=== PATIENT | female | born 1975 | race Caucasian/White ===

== ENCOUNTER 2019-11-29 17:44 | Inpatient (IN) | payer MEDICAID ==
[~2019-11-29] VITALS: Ht 157.5 cm; Wt 102.9 kg
--- NOTE | 2019-11-29 18:04 | NUR ---
PT WITH C/O CP BEGINNING AT 1600 TODAY, PT WITH HX OF DE SHE TOOK ONE OF HER NITROS AND THE PAIN WENT FROM 7/10 TO 310. PT DENIES SOB. PT TO CARD MONITOR, CONT PULSE OX, BP.
--- NOTE | 2019-11-29 18:27 | NUR ---
PT STATES DOESNT WANT TO TAKE ORDERED ASA BECAUSE SHE IS ON COUMADIN, ERMD MADE AWARE
[2019-11-29] MEDS ORDERED: SODIUM CHLORIDE FLUSH 10ML SYR IVF ONE (18:30)
[2019-11-29] MEDS ORDERED: ASPIRIN 81 MG TABLET CHEW PO ONE (18:30)
--- NOTE | 2019-11-29 18:43 | NUR ---
PT TO IMAGING
[2019-11-29 18:53] LABS: ALBUMIN 3.3 g/dL (3.4-5.0); ANION GAP 8 mmol/L (5-15); CALCIUM 8.5 mg/dL (8.5-10.1); CHLORIDE 109 mmol/L (98-107); CREATININE 0.94 mg/dL (0.55-1.02)
[2019-11-29 18:56] LABS: INTERNATIONAL NORMALIZED RATIO 1.61 (0.93-1.1); PROTHROMBIN TIME 17.1 Seconds (9.6-11.5); TROPONIN I < 0.015 ng/mL (0.000-0.045)
[2019-11-29] MEDS ORDERED: PLEASE ENTER ALLERGIES MC SCH (19:00)
[2019-11-29 19:01] LABS: BASOPHILS # (AUTO) 0.04 x10^3/uL (0-0.1); BASOPHILS % (AUTO) 1 % (0-1); EOSINOPHILS # (AUTO) 0.14 x10^3/uL (0-0.4); EOSINOPHILS % (AUTO) 2 % (1-7); LYMPHOCYTES % (AUTO) 35 % (22-44); MD NO; MEAN CORPUSCULAR HEMOGLOBIN 29.3 pg (27.0-34.8); MEAN CORPUSCULAR HGB CONC 32.6 g/dL (32.4-35.8); MEAN PLATELET VOLUME 8.7 fL (7.4-10.4); MONOCYTES % (AUTO) 10 % (2-9); NEUTROPHILS % (AUTO) 52 % (42-75); PLATELET COUNT 287 x10^3/uL (130-400); RED BLOOD COUNT 4.05 x10^6/uL (3.82-5.3); RED CELL DISTRIBUTION WIDTH 15.7 % (9.6-15.2)
[2019-11-29] MEDS ORDERED: NITROGLYCERIN SINGLE TAB 0.4 MG SL ONE ×2 (19:30→21:39)
[2019-11-29] MEDS: NITROGLYCERIN SINGLE TAB 0.4 MG SL PRN ×2 (19:33→21:40)
--- NOTE | 2019-11-29 19:49 | NUR ---
Medication admin per mar for CP. Decreased pain from a 4/10 to a 2/10 which is tolerable for patient.
[2019-11-29] MEDS ORDERED: SODIUM CHLORIDE FLUSH 10ML SYR IVF PRN (20:30)
[2019-11-29] MEDS ORDERED: POLYETHYLENE GLYCOL 17 GM PACKET PO PRN (21:00)
[2019-11-29] MEDS ORDERED: NITROGLYCERIN 0.4 MG BOTTLE (25 TABS) SL PRN (21:00)
[2019-11-29] MEDS ORDERED: ONDANSETRON ODT 4 MG PO PRN (21:00)
[2019-11-29] MEDS ORDERED: morphine SULFATE 10 MG/ML, 1ML IVPush PRN (21:00)
[2019-11-29] MEDS ORDERED: BISACODYL 10 MG SUPP PR PRN (21:00)
[2019-11-29] MEDS ORDERED: SERT100T32 PO (21:11)
[2019-11-29] MEDS ORDERED: CHLO25TA PO (21:11)
[2019-11-29] MEDS ORDERED: METH500T7 PO (21:11)
[2019-11-29] MEDS ORDERED: WARF10TA43 PO (21:11)
[2019-11-29] MEDS ORDERED: GABA300C10 PO (21:11)
[2019-11-29] MEDS ORDERED: TOPI100T8 PO (21:11)
[2019-11-29] MEDS ORDERED: PROP40TA PO (21:11)
[2019-11-29] MEDS ORDERED: OLAN20TA14 PO (21:11)
[2019-11-29] MEDS ORDERED: TRAZ50TA66 PO (21:11)
[2019-11-29] MEDS ORDERED: LISI-170 PO (21:11)
[2019-11-29] MEDS ORDERED: ONDA4TAB13 SL (21:11)
[2019-11-29] MEDS ORDERED: LOVA40TA2 PO (21:11)
--- NOTE | 2019-11-29 21:41 | NUR ---
Patient c/o CP 02/22. Administered meds per jan.
--- NOTE | 2019-11-29 21:55 | NUR ---
Pt alert and awake on [facility]. Report given to DEVYN Alvarado
--- NOTE | 2019-11-29 22:30 | NUR ---
At time of admit, pt alert and interactive. NAD.
[2019-11-29] MEDS: SODIUM CHLORIDE FLUSH 10ML SYR IVF SCH (23:06)
[2019-11-30] MEDS: ENOXAPARIN 100 MG/ML SQ SCH ×2 (00:14→11:30)
[2019-11-30 00:55] LABS: TROPONIN I < 0.015 ng/mL (0.000-0.045)
[2019-11-30] MEDS ORDERED: TRAZODONE 100MG TABLET PO ONE (01:30)
[2019-11-30 02:40] VITALS: BP 111/77
[2019-11-30] MEDS ORDERED: ASPIRIN 325 MG TABLET EC PO SCH (06:00)
[2019-11-30 07:17] LABS: TROPONIN I < 0.015 ng/mL (0.000-0.045)
[2019-11-30] MEDS: SODIUM CHLORIDE FLUSH 10ML SYR IVF SCH (09:00)
[2019-11-30] MEDS ORDERED: LORazepam 2 MG/ML, 1ML IVPush ONE (09:00)
[2019-11-30] MEDS ORDERED: SENNA/DOCUSATE TABLET PO SCH (09:00)
[2019-11-30] MEDS ORDERED: LORazepam 2 MG/ML, 1ML ONE (09:07)
[2019-11-30 12:25] VITALS: BP 96/65
[2019-11-30] MEDS ORDERED: REGADENOSON 0.4 MG/5 ML SYRINGE ONE (12:29)
[2019-11-30] MEDS ORDERED: ENOX100S4 SQ (14:45)
[2019-11-30] MEDS ORDERED: ASPI-515 PO (14:47)
[2019-11-30 15:00] VITALS: BP 112/79
[2019-11-30] MEDS ORDERED: TOPIRAMATE 100 MG TABLET PO SCH (21:00)
[2019-11-30] MEDS ORDERED: GABAPENTIN 300 MG CAPSULE PO SCH (21:00)
[2019-11-30] MEDS ORDERED: METHOCARBAMOL 500 MG TABLET PO SCH (21:00)
[2019-11-30] MEDS ORDERED: LOVASTATIN 40 MG TABLET PO SCH (21:00)
[2019-12-01] MEDS ORDERED: SERTRALINE 100MG TABLET PO SCH (09:00)
[2019-12-01] MEDS ORDERED: ONDANSETRON ODT 4 MG SL SCH (09:00)
[2019-12-01] MEDS ORDERED: CHLORTHALIDONE 25 MG TABLET PO SCH (09:00)
[2019-12-01] MEDS ORDERED: LISINOPRIL 20 MG TABLET PO SCH (09:00)
[2019-12-01] MEDS ORDERED: PROPRANOLOL 40 MG TABLET PO SCH (09:00)
[2019-12-01] MEDS ORDERED: TRAZODONE 50MG TABLET PO SCH (09:00)
[2019-12-01] MEDS ORDERED: OLANZAPINE 10 MG TABLET PO SCH (09:00)
== END 2019-11-30 16:35 | disposition home or self-care (01) | DRG 313 ==
LOC: ED 21:11 → EDIP 21:34 → 5SO 22:38 → DCLOUNGE 11-30 16:15
PROVIDERS: ADMIT Family Medicine; ATTEND Internal Medicine
DX: R07.9 Chest pain, unspecified (principal); E78.5 Hyperlipidemia, unspecified; I10 Essential (primary) hypertension; I25.119 Atherosclerotic heart disease of native coronary artery with unspecified angina pectoris; I25.2 Old myocardial infarction; Z86.718 Personal history of other venous thrombosis and embolism; Z86.73 Personal history of transient ischemic attack (TIA), and cerebral infarction without residual deficits; Z95.5 Presence of coronary angioplasty implant and graft; Z90.49 Acquired absence of other specified parts of digestive tract
CPT/HCPCS: 36415; 71046; 78452; 80048; 82040; 83880; 84439; 84443; 84484; 85025; 85610; 85730; 93005; 93017; 99285; G0378; J1650; J2785; A9502; J2060

== ENCOUNTER 2020-02-04 15:05 | Emergency (ER) | payer MEDICAID ==
[~2020-02-04] VITALS: Ht 157.5 cm; Wt 109.5 kg
[~2020-02-04 15:05] MED LIST: ASPI-515 PO; CHLO25TA PO; ENOX100S4 SQ; GABA300C10 PO; LISI-170 PO; LOVA40TA2 PO; METH500T7 PO; OLAN20TA14 PO; ONDA4TAB13 SL; PROP40TA PO; SERT100T32 PO; TOPI100T8 PO; TRAZ50TA66 PO; WARF10TA43 PO
[2020-02-04 15:12] VITALS: BP 94/60
== END 2020-02-04 15:47 | disposition home or self-care (01) ==
LOC: ED 15:35
DX: B34.9 Viral infection, unspecified (principal); J45.31 Mild persistent asthma with (acute) exacerbation
CPT/HCPCS: 99283

== ENCOUNTER 2020-03-24 08:05 | Emergency (ER) | payer MEDICAID ==
[~2020-03-24] VITALS: Ht 157.5 cm; Wt 110.3 kg
[2020-03-24 08:08] VITALS: BP 126/87
[2020-03-24] MEDS ORDERED: DEXAMETHASONE 4 MG/ML, 1ML IM ONE (08:30)
[2020-03-24] MEDS ORDERED: DEXAMETHASONE 4 MG/ML, 1ML ONE (08:42)
== END 2020-03-24 09:21 | disposition home or self-care (01) ==
LOC: ED 09:11
DX: L24.9 Irritant contact dermatitis, unspecified cause (principal); L23.9 Allergic contact dermatitis, unspecified cause; J45.909 Unspecified asthma, uncomplicated
CPT/HCPCS: 96372; 99283; J1100; Q0177

== ENCOUNTER 2020-04-18 20:31 | Observation (INO) | payer MEDICAID ==
[~2020-04-18] VITALS: Ht 157.5 cm; Wt 116.8 kg
--- NOTE | 2020-04-18 20:58 | NUR ---
PT BIB [facility], PT WITH SUDDEN ONSET SOB WITH CHEST PRESSURE, WOKE PT UP FROM SLEEP. PT WITH HX LA X2. PT ATTEMPTED TO ADMIN ONE BREATHING TX TO HERSELF WITH NO RELIEF, PT ALSO TOOK ONE NITRO WHICH WORSENED PTS SOB. PT DENIES FEVER/COUGH. PT STATES SHE IS MORE SOB THEN HAVING ACTIVE CP AT THIS TIME. PT IS UNSURE IF IT IS HER COPD ACTING UP OR NOT. PT TO BP, CONT PULSE OX, CARD MONITOR. VSS AT THIS TIME, AWAITING LARS JARA
--- NOTE | 2020-04-18 21:11 | NUR ---
PT REPORT FROM DEVYN HAAS. PT CARE TO BE ASSUMED.
--- NOTE | 2020-04-18 21:41 | NUR ---
THIS TECH DID EKG. PT STATES SHE IS HAVING SURGERY ON WEDNESDAY TO REMOVE HARDWARE FROM ANKLE AND "CAN'T STAY IF NEEDS TO BE ADMITTED". ADVISED PT TO SPEAK TO AND THAT IT IS NOT ADVISABLE TO LEAVE AMA.
[2020-04-18] MEDS ORDERED: CARB400T4 PO (21:42)
[2020-04-18] MEDS ORDERED: NITR0.4T28 SL (21:42)
[2020-04-18] MEDS ORDERED: BUSP30TA PO (21:42)
[2020-04-18] MEDS ORDERED: POTA20TA14 PO (21:42)
[2020-04-18] MEDS ORDERED: ERGO500018 PO (21:42)
[2020-04-18] MEDS ORDERED: PROP20TA PO (21:42)
[2020-04-18] MEDS ORDERED: BUDE10.26 INH (21:43)
[2020-04-18] MEDS ORDERED: ALBU2.5V INH (21:43)
--- NOTE | 2020-04-18 21:50 | NUR ---
CXR DONE. PT RESTING QUIETLY ON GURNEY. MONITORING CONTINUING.
--- NOTE | 2020-04-18 22:06 | NUR ---
PT REPORT TO DEVYN PENALOZA. PT CARE TRANSFERRED.
--- NOTE | 2020-04-18 22:07 | NUR ---
RECEIVED REPORT FROM SANDY SHEPARD. CARE ASSUMED AT THIS TIME. LAB CALLED REGARDING ORDERS FOR LAB DRAW, TO COME COLLECT SPECIMENS. VSS. SR ON MONITOR. PT REPORTS "EVERY TIME I TAKE A DEEP BREATH IT HURTS BUT I DON'T WANT TO BE ADMITTED, I HAVE A SURGERY COMING UP TO GET METAL OUT OF MY ANKLE, IT CAUSES ME PAIN SO I CAN'T BE POSTPONED." REPORTS "SOB ABOUT THE SAME AND THE CP TOO, STILL 06/24." DISCUSSED PAIN AND PT SYMPTOMS WITH DR. SALCEDO, AWARE, NO NEW ORDERS RECEIVED. CALL LIGHT IN REACH. FALL PRECAUTIONS IN PLACE.
--- NOTE | 2020-04-18 22:13 | NUR ---
LAB AT BEDSIDE
--- NOTE | 2020-04-18 22:35 | NUR ---
REPORT AND TRANSFER OF CARE TO MINO SHEPARD AT THIS TIME.
--- NOTE | 2020-04-18 22:35 | NUR ---
BEDSIDE REPORT FROM TREMAINE SHEPARD, PT CARE TRANSFERRED AT THIS TIME. RESTING IN [facility], CALL LIGHT ON LAP, [facility].
[2020-04-18 22:37] LABS: ALANINE AMINOTRANSFERASE 19 U/L (12-78); ANION GAP 8 mmol/L (5-15); CALCIUM 8.4 mg/dL (8.5-10.1); CHLORIDE 110 mmol/L (98-107); CREATININE 0.87 mg/dL (0.55-1.02)
[2020-04-18 22:38] LABS: BASOPHILS # (AUTO) 0.05 x10^3/uL (0-0.1); BASOPHILS % (AUTO) 1 % (0-1); EOSINOPHILS % (AUTO) 4 % (1-7); LYMPHOCYTES # (AUTO) 2.36 x10^3/uL (1-3.4); LYMPHOCYTES % (AUTO) 31 % (22-44); MD NO; MEAN CORPUSCULAR HEMOGLOBIN 28.3 pg (27.0-34.8); MEAN CORPUSCULAR HGB CONC 32.1 g/dL (32.4-35.8); MEAN CORPUSCULAR VOLUME 88.4 fL (80-100); MEAN PLATELET VOLUME 8.9 fL (7.4-10.4); MONOCYTES # (AUTO) 0.71 x10^3/uL (0.2-0.8); MONOCYTES % (AUTO) 9 % (2-9); NEUTROPHILS # (AUTO) 4.15 x10^3/uL (1.8-6.8); NEUTROPHILS % (AUTO) 55 % (42-75); PLATELET COUNT 304 x10^3/uL (130-400); RED BLOOD COUNT 4.03 x10^6/uL (3.82-5.3); RED CELL DISTRIBUTION WIDTH 15.6 % (9.6-15.2)
[2020-04-18 22:41] LABS: ALKALINE PHOSPHATASE 84 U/L (45-117); BILIRUBIN,TOTAL 0.2 mg/dL (0.2-1.0); TOTAL PROTEIN 7.2 g/dL (6.4-8.2); TROPONIN I < 0.015 ng/mL (0.000-0.045)
[2020-04-18] MEDS ORDERED: ACETAMINOPHEN 325 MG TABLET ONE ×2 (23:24→23:28)
[2020-04-18 23:27] LABS: INTERNATIONAL NORMALIZED RATIO 1.06 (0.93-1.1); PROTHROMBIN TIME 11.2 Seconds (9.6-11.5)
[2020-04-18] MEDS ORDERED: ONDANSETRON 2MG/ML, 2ML IVPush PRN (23:30)
[2020-04-18] MEDS ORDERED: MORPHINE SULFATE 4 MG/ML, 1ML IVPush PRN (23:30)
--- NOTE | 2020-04-18 23:32 | NUR ---
PT MEDICATED PER JAN, RESTING IN GURNEY, NAD, RESP WNL, P/W/D, CALL LIGHT ON LAP, DENIES ADDITIONAL NEEDS AT THIS TIME. WCTM.
[2020-04-19] MEDS ORDERED: BISACODYL 10 MG SUPP PR PRN
[2020-04-19] MEDS ORDERED: ACETAMINOPHEN 325 MG TABLET PO ONE
[2020-04-19] MEDS ORDERED: ONDANSETRON ODT 4 MG PO PRN
[2020-04-19] MEDS ORDERED: POLYETHYLENE GLYCOL 17 GM PACKET PO PRN
[2020-04-19] MEDS ORDERED: ACETAMINOPHEN 325 MG TABLET PO PRN
[2020-04-19] MEDS ORDERED: METHOCARBAMOL 500 MG TABLET PO SCH
[2020-04-19] MEDS ORDERED: morphine SULFATE 10 MG/ML, 1ML IVPush PRN
--- NOTE | 2020-04-19 00:11 | NUR ---
REPORT CALLED TO RYLAND SHEPARD, PT RESTING IN [facility], [facility], RESP WNL, P/W/D, VSS, CALL LIGHT ON LAP, WCTM. WAITING FOR BED TRANSFER
[2020-04-19] MEDS ORDERED: ALBUTEROL SULFATE 2.5 MG/3 ML NPPB SCH (00:30)
[2020-04-19] MEDS ORDERED: BUDESONIDE 0.5 MG/2 ML INHA NPPB SCH (00:30)
[2020-04-19 00:31] VITALS: BP 134/80
[2020-04-19] MEDS ORDERED: TRAZ-175 PO (01:33)
[2020-04-19] MEDS ORDERED: METH500T7 PO (01:57)
[2020-04-19 02:37] VITALS: BP 117/81
[2020-04-19] MEDS: TRAZODONE 100MG TABLET PO SCH ×2 (02:59→21:19)
[2020-04-19] MEDS ORDERED: NITROGLYCERIN 0.4 MG/SPRAY SL PRN (03:00)
[2020-04-19] MEDS ORDERED: NITROGLYCERIN 0.4 MG BOTTLE (25 TABS) SL PRN (03:00)
[2020-04-19] MEDS: NITROGLYCERIN 0.4 MG BOTTLE (25 TABS) SL PRN ×2 (03:13→08:48)
[2020-04-19] MEDS: HEPARIN 5,000 UNITS/ML, 1ML SQ SCH ×3 (03:13→17:09)
[2020-04-19] MEDS: GABAPENTIN 300 MG CAPSULE PO SCH ×4 (03:14→21:19)
[2020-04-19] MEDS: BUSPIRONE 10 MG TABLET PO SCH ×3 (03:14→21:19)
[2020-04-19] MEDS: PROPRANOLOL 20 MG TABLET PO SCH ×4 (03:14→21:19)
[2020-04-19] MEDS: CARBAMAZEPINE XR 200 MG TABLET PO SCH ×3 (03:14→21:19)
[2020-04-19] MEDS: SODIUM CHLORIDE FLUSH 10ML SYR IVF SCH ×3 (03:15→21:20)
[2020-04-19 03:35] VITALS: BP 109/74
[2020-04-19 06:11] LABS: TROPONIN I < 0.015 ng/mL (0.000-0.045)
[2020-04-19] MEDS: ASPIRIN 81 MG TABLET EC PO SCH (06:41)
[2020-04-19] MEDS: METHOCARBAMOL 500 MG TABLET PO SCH ×4 (06:41→21:19)
[2020-04-19] MEDS: ALBUTEROL SULFATE 2.5 MG/3 ML NPPB SCH ×4 (07:03→19:53)
[2020-04-19 08:21] VITALS: BP 114/76
[2020-04-19] MEDS: POTASSIUM CHLORIDE 20 MEQ TAB.ER.PRT PO SCH (08:50)
[2020-04-19] MEDS: SERTRALINE 100MG TABLET PO SCH (08:51)
[2020-04-19] MEDS: SENNA/DOCUSATE TABLET PO SCH (08:52)
[2020-04-19] MEDS: OLANZAPINE 10 MG TABLET PO SCH (08:52)
[2020-04-19] MEDS ORDERED: TRAZODONE 100MG TABLET PO SCH (09:00)
[2020-04-19 09:57] LABS: T4 (THYROXINE) 6.3 mcg/dL (4.8-13.9)
[2020-04-19] MEDS: BUDESONIDE 0.5 MG/2 ML INHA NPPB SCH ×2 (10:00→19:53)
[2020-04-19 11:59] LABS: TROPONIN I < 0.015 ng/mL (0.000-0.045)
[2020-04-19 14:03] VITALS: BP 101/69
[2020-04-19 20:41] LABS: MICROSCOPIC INDICATED
[2020-04-19 20:50] LABS: AMPHETAMINE SCREEN, URINE Negative (Negative); BARBITURATE SCREEN, URINE Negative (Negative); BENZODIAZEPINE SCREEN, URINE Negative (Negative); CANNABINOID SCREEN, URINE Negative (Negative); COCAINE SCREEN, URINE Negative (Negative); METHADONE SCREEN, URINE Negative (Negative); OPIATE SCREEN, URINE Negative (Negative)
[2020-04-19 21:14] VITALS: BP 115/78
[2020-04-19] MEDS: ENOXAPARIN 120MG/0.8ML SQ SCH (21:19)
[2020-04-20 00:58] VITALS: BP 106/72
[2020-04-20] MEDS: METHOCARBAMOL 500 MG TABLET PO SCH ×3 (06:20→16:41)
[2020-04-20] MEDS: ASPIRIN 81 MG TABLET EC PO SCH (06:20)
[2020-04-20] MEDS: ALBUTEROL SULFATE 2.5 MG/3 ML NPPB SCH ×3 (07:00→14:34)
[2020-04-20 08:07] VITALS: BP 134/86
[2020-04-20 08:29] VITALS: BP 121/82
[2020-04-20] MEDS: BUDESONIDE 0.5 MG/2 ML INHA NPPB SCH (08:58)
[2020-04-20] MEDS: SODIUM CHLORIDE FLUSH 10ML SYR IVF SCH (09:00)
[2020-04-20] MEDS: SENNA/DOCUSATE TABLET PO SCH (09:00)
[2020-04-20] MEDS: SERTRALINE 100MG TABLET PO SCH (09:49)
[2020-04-20] MEDS: BUTALB/APAP/CAFFEINE 50MG/325MG/40MG PO PRN ×2 (09:49→16:44)
[2020-04-20] MEDS: PROPRANOLOL 20 MG TABLET PO SCH ×2 (09:50→16:41)
[2020-04-20] MEDS: POTASSIUM CHLORIDE 20 MEQ TAB.ER.PRT PO SCH (09:50)
[2020-04-20] MEDS: OLANZAPINE 10 MG TABLET PO SCH (09:50)
[2020-04-20] MEDS: CARBAMAZEPINE XR 200 MG TABLET PO SCH (09:50)
[2020-04-20] MEDS: BUSPIRONE 10 MG TABLET PO SCH (09:51)
[2020-04-20] MEDS: GABAPENTIN 300 MG CAPSULE PO SCH ×2 (09:51→16:41)
[2020-04-20] MEDS: ENOXAPARIN 120MG/0.8ML SQ SCH (09:52)
[2020-04-20 13:32] VITALS: BP 108/72
[2020-04-20] MEDS ORDERED: ENOX120S4 SQ (15:03)
[2020-04-20] MEDS ORDERED: ASPI81TA45 PO (15:03)
[2020-04-20] MEDS ORDERED: ATOR-2 PO (15:03)
[2020-04-20 16:40] VITALS: BP 120/79
[2020-04-20] MEDS ORDERED: ATORVASTATIN 80 MG TABLET PO SCH ×2 (21:00)
== END 2020-04-20 17:50 | disposition home or self-care (01) ==
LOC: ED 22:33 → EDIP 23:46 → INTOOBSV 23:46 → 5SO 04-19 00:25
PROVIDERS: ADMIT Hospitalist; ATTEND Internal Medicine
DX: R07.89 Other chest pain (principal); I25.2 Old myocardial infarction; I25.110 Atherosclerotic heart disease of native coronary artery with unstable angina pectoris; I82.90 Acute embolism and thrombosis of unspecified vein; C34.90 Malignant neoplasm of unspecified part of unspecified bronchus or lung; I10 Essential (primary) hypertension; E78.5 Hyperlipidemia, unspecified; F15.11 Other stimulant abuse, in remission; F32.9 Major depressive disorder, single episode, unspecified; J44.9 Chronic obstructive pulmonary disease, unspecified; E66.01 Morbid (severe) obesity due to excess calories; G89.29 Other chronic pain; F25.9 Schizoaffective disorder, unspecified; D68.59 Other primary thrombophilia; R45.851 Suicidal ideations; Z79.899 Other long term (current) drug therapy; Z87.891 Personal history of nicotine dependence; Z79.01 Long term (current) use of anticoagulants; Z86.711 Personal history of pulmonary embolism; Z95.5 Presence of coronary angioplasty implant and graft; Z86.73 Personal history of transient ischemic attack (TIA), and cerebral infarction without residual deficits
CPT/HCPCS: 36415; 71045; 71250; 76770; 80053; 80307; 81001; 84436; 84481; 84484; 85025; 85379; 85610; 93005; 93306; 94640; 96372; 99285; G0378; J1644; J1650; J7613; J7626

== ENCOUNTER 2020-05-17 15:37 | Emergency (ER) | payer MEDICAID ==
[~2020-05-17] VITALS: Ht 157.5 cm; Wt 117.0 kg
[~2020-05-17 15:37] MED LIST changes: +ALBU2.5V INH; +ASPI81TA45 PO; +ATOR-2 PO; +BUDE10.26 INH; +BUSP30TA PO; +CARB400T4 PO; +ENOX120S4 SQ; +ERGO500018 PO; +NITR0.4T28 SL; +POTA20TA14 PO; +PROP20TA PO; +TRAZ-175 PO
--- NOTE | 2020-05-17 15:37 | NUR ---
Pt BIB [facility] from [facility]. Pt c/p middle abd pain with nausea since last night. Pt also reports blacy tarry stool as well. Pt positioned for comfort in bed with warm blanket. Continuous oxygen and BP monitors applied, all safety measures observed.
[2020-05-17] MEDS ORDERED: ONDANSETRON 2MG/ML, 2ML ONE (15:50)
[2020-05-17] MEDS ORDERED: MORPHINE SULFATE 4 MG/ML, 1ML ONE ×2 (15:50→16:15)
[2020-05-17] MEDS ORDERED: ONDANSETRON 2MG/ML, 2ML IVPush ONE (16:00)
[2020-05-17] MEDS ORDERED: SODIUM CHLORIDE FLUSH 10ML SYR IVF ONE (16:00)
[2020-05-17] MEDS: MORPHINE SULFATE 4 MG/ML, 1ML IVPush PRN ×2 (16:01→16:18)
--- NOTE | 2020-05-17 16:02 | NUR ---
Pt medicated per MAR for pain. Pt encouraged to provide urine sample as soon as able.
[2020-05-17] MEDS ORDERED: WARF10TA43 PO (16:13)
[2020-05-17 16:16] LABS: BASOPHILS # (AUTO) 0.04 x10^3/uL (0-0.1); BASOPHILS % (AUTO) 1 % (0-1); EOSINOPHILS % (AUTO) 3 % (1-7); INTERNATIONAL NORMALIZED RATIO 1.48 (0.93-1.1); LYMPHOCYTES # (AUTO) 1.94 x10^3/uL (1-3.4); LYMPHOCYTES % (AUTO) 26 % (22-44); MD NO; MEAN CORPUSCULAR HEMOGLOBIN 28.2 pg (27.0-34.8); MEAN CORPUSCULAR HGB CONC 32.2 g/dL (32.4-35.8); MEAN CORPUSCULAR VOLUME 87.7 fL (80-100); MEAN PLATELET VOLUME 8.5 fL (7.4-10.4); MONOCYTES # (AUTO) 0.48 x10^3/uL (0.2-0.8); MONOCYTES % (AUTO) 7 % (2-9); NEUTROPHILS % (AUTO) 64 % (42-75); PLATELET COUNT 383 x10^3/uL (130-400); PROTHROMBIN TIME 15.8 Seconds (9.6-11.5); RED BLOOD COUNT 3.97 x10^6/uL (3.82-5.3); RED CELL DISTRIBUTION WIDTH 14.9 % (9.6-15.2)
--- NOTE | 2020-05-17 16:18 | NUR ---
Pt states pain unchanged after first dose morphine 08/24. Pt medicated with second dose per JAN. Verbal reassurance provided.
--- NOTE | 2020-05-17 16:18 | NUR ---
Unable to obtain new set VS due to pt movement.
[2020-05-17 16:19] LABS: ALANINE AMINOTRANSFERASE 19 U/L (12-78); ANION GAP 4 mmol/L (5-15); CALCIUM 8.3 mg/dL (8.5-10.1); CHLORIDE 109 mmol/L (98-107); CREATININE 0.91 mg/dL (0.55-1.02)
[2020-05-17 16:24] LABS: ALKALINE PHOSPHATASE 113 U/L (45-117); BILIRUBIN,TOTAL 0.1 mg/dL (0.2-1.0); TOTAL PROTEIN 7.5 g/dL (6.4-8.2)
--- NOTE | 2020-05-17 16:40 | NUR ---
Pt to CT via [facility].
[2020-05-17] MEDS ORDERED: HYDROmorphone 1 MG/ML, 1ML INJ ONE (17:06)
--- NOTE | 2020-05-17 17:11 | NUR ---
Pt states pain unchanged after second dose Morphine. Fernando WATERS made aware, orders for dilaudid recieved. Pt medicated per order and positioned for comfort in bed, denies other needs.
[2020-05-17] MEDS ORDERED: HYDROmorphone 2 MG/ML, 1ML IVPush PRN (17:30)
--- NOTE | 2020-05-17 17:44 | NUR ---
Pt ambulatory to bathroom to attempt to provide urine sample. Pt states pain improved after medications given, now 03/24.
[2020-05-17] MEDS ORDERED: MAALOX/HYOSCYAMINE/LIDOCAINE 45 ML BTL ONE (17:50)
--- NOTE | 2020-05-17 17:53 | NUR ---
Pt back to bed from bathroom. Pt medicated per MAR, denies other needs.
[2020-05-17] MEDS ORDERED: MAALOX/HYOSCYAMINE/LIDOCAINE 45 ML BTL PO ONE (18:00)
[2020-05-17 18:22] LABS: MICROSCOPIC NOT IND
--- NOTE | 2020-05-17 18:40 | NUR ---
TASK RN. PT DISCHARGED PER DR. QUESADA. ASSISTING PRIMARY RN WITH DISCHARGE ONLY. PROVIDED DISCHARGE INSTRUCTIONS, VERBALIZED UNDERSTANDING, HANDOUTS AND RX IN HAND. AMBULATORY TO CHECKOUT DESK WITH OWN WALKER AND ALL BELONINGS. REPORTS PAIN IMPROVED TO 3-4/10. VSS AT DISCHARGE. A&OX4. DENIES DRIVING HOME "I CAN'T DRIVE BECAUSE MY EPILEPSY, MY RIDE IS ON THEIR WAY."
[2020-05-17 18:43] VITALS: BP 113/72
== END 2020-05-17 18:47 | disposition home or self-care (01) ==
LOC: ED 18:07
DX: A08.4 Viral intestinal infection, unspecified (principal); R10.33 Periumbilical pain; J44.9 Chronic obstructive pulmonary disease, unspecified; I25.2 Old myocardial infarction; R11.0 Nausea; R63.0 Anorexia; Z79.899 Other long term (current) drug therapy; Z88.9 Allergy status to unspecified drugs, medicaments and biological substances
CPT/HCPCS: 36415; 74176; 80053; 81003; 83690; 84703; 85025; 85610; 86850; 86900; 96374; 96375; 99284; J1170; J2270; J2405

== ENCOUNTER 2020-06-08 21:27 | Emergency (ER) | payer MEDICAID ==
[~2020-06-08] VITALS: Ht 157.5 cm; Wt 120.2 kg
[2020-06-08 21:40] VITALS: BP 134/80
[2020-06-08] MEDS ORDERED: KETOROLAC 30 MG/1 ML ONE (23:23)
[2020-06-08] MEDS ORDERED: KETOROLAC 30 MG/1 ML IM ONE (23:30)
--- NOTE | 2020-06-08 23:39 | NUR ---
TASK RN: PT MEDICATED PER JAN, PROVIDED WITH TAXI VOUCHER AND EDUCATED ON DC Patient/Caregiver given discharge instructions and they have confirmed that they understand the instructions. Patient ambulatory with steady gait.
== END 2020-06-08 23:40 | disposition home or self-care (01) ==
LOC: ED 21:57
DX: L03.114 Cellulitis of left upper limb (principal); L03.113 Cellulitis of right upper limb; M79.602 Pain in left arm; R21 Rash and other nonspecific skin eruption; J44.9 Chronic obstructive pulmonary disease, unspecified; I25.2 Old myocardial infarction
CPT/HCPCS: 96372; 99283; J1885

== ENCOUNTER 2020-07-05 15:56 | Emergency (ER) | payer MEDICAID ==
[~2020-07-05] VITALS: Ht 157.5 cm; Wt 118.3 kg
[2020-07-05 15:59] VITALS: BP 143/89
== END 2020-07-05 17:39 | disposition home or self-care (01) ==
LOC: ED 16:00
DX: L73.8 Other specified follicular disorders (principal); B86 Scabies; J44.9 Chronic obstructive pulmonary disease, unspecified; I25.2 Old myocardial infarction
CPT/HCPCS: 99283

== ENCOUNTER 2020-07-19 14:01 | Inpatient (IN) | payer MEDICAID ==
[~2020-07-19] VITALS: Ht 157.5 cm; Wt 123.4 kg
--- NOTE | 2020-07-19 14:44 | NUR ---
PT HAS CO OF BLISTERS ON MOUTH AND VAGINA FROM ALLERGIC REACTION FROM [facility] STARTED THIS AM. PCP TOLD PT TO COME TO ER. WAS NO ABX FOR SCABIES. INCREASED BLEEDING FROM SCABS, ON COUMADIN
[2020-07-19 15:35] LABS: BASOPHILS # (AUTO) 0.03 x10^3/uL (0-0.1); BASOPHILS % (AUTO) 0 % (0-1); EOSINOPHILS # (AUTO) 0.27 x10^3/uL (0-0.4); EOSINOPHILS % (AUTO) 3 % (1-7); LYMPHOCYTES # (AUTO) 2.32 x10^3/uL (1-3.4); LYMPHOCYTES % (AUTO) 22 % (22-44); MD NO; MEAN CORPUSCULAR HEMOGLOBIN 26.4 pg (27.0-34.8); MEAN CORPUSCULAR HGB CONC 32.1 g/dL (32.4-35.8); MEAN CORPUSCULAR VOLUME 82.3 fL (80-100); MEAN PLATELET VOLUME 8.6 fL (7.4-10.4); MONOCYTES # (AUTO) 0.83 x10^3/uL (0.2-0.8); MONOCYTES % (AUTO) 8 % (2-9); NEUTROPHILS % (AUTO) 67 % (42-75); PLATELET COUNT 388 x10^3/uL (130-400); RED BLOOD COUNT 4.41 x10^6/uL (3.82-5.3); RED CELL DISTRIBUTION WIDTH 16.7 % (9.6-15.2)
[2020-07-19 15:46] LABS: ALBUMIN 3.3 g/dL (3.4-5.0); ANION GAP 5 mmol/L (5-15); CALCIUM 9.4 mg/dL (8.5-10.1); CHLORIDE 111 mmol/L (98-107); CREATININE 0.96 mg/dL (0.55-1.02)
--- NOTE | 2020-07-19 16:35 | NUR ---
LAB COAG MACHINE NOT READING LAB, WILL NEED REDRAW
--- NOTE | 2020-07-19 17:30 | NUR ---
PER LAB, COAGS ARE UNABLE TO BE VERIFIED, WILL NEED TO SEND TO [place].
--- NOTE | 2020-07-19 17:31 | NUR ---
PT GIVEN BLANKETS AND WATER. VSS
--- NOTE | 2020-07-19 20:44 | NUR ---
PT RESTING IN BED, PT HAS NO WANTS / NEEDS AT THIS TIME, PT ON MONITOR, RESPIRATORY CARE ASSISTANT WILL CONTINUE TO MONITOR PT VITALS AND CONDITION
[2020-07-19] MEDS ORDERED: PHYTONADIONE 5 MG TABLET PO ONE (22:00)
[2020-07-19] MEDS ORDERED: SODIUM CHLORIDE FLUSH 10ML SYR IVF PRN (22:30)
[2020-07-19] MEDS ORDERED: BISACODYL 10 MG SUPP PR PRN (22:30)
[2020-07-19] MEDS ORDERED: NITROGLYCERIN SINGLE TAB 0.4 MG SL PRN (22:30)
[2020-07-19] MEDS: BUDESONIDE INH SCH (22:30)
[2020-07-19] MEDS: FORMOTEROL FUMARATE INH SCH (22:30)
[2020-07-19] MEDS ORDERED: ONDANSETRON ODT 4 MG PO PRN (22:30)
[2020-07-19] MEDS ORDERED: POLYETHYLENE GLYCOL 17 GM PACKET PO PRN (22:30)
[2020-07-19 23:42] LABS: PROTHROMBIN TIME > 148.7 Seconds (9.6-11.5)
[2020-07-19 23:43] LABS: INTERNATIONAL NORMALIZED RATIO > 12.00 (0.93-1.1)
[2020-07-20] MEDS: BUSPIRONE 10 MG TABLET PO SCH ×3 (00:18→21:56)
[2020-07-20] MEDS: TRAZODONE 100MG TABLET PO SCH ×2 (00:18→21:56)
[2020-07-20] MEDS: AQUAPHOR NATURAL HEALING OINT 50GM TP SCH ×4 (00:18→21:56)
[2020-07-20] MEDS: SODIUM CHLORIDE FLUSH 10ML SYR IVF SCH ×3 (00:18→21:56)
[2020-07-20] MEDS: CARBAMAZEPINE XR 200 MG TABLET PO SCH ×3 (00:19→09:00)
[2020-07-20] MEDS: PROPRANOLOL 20 MG TABLET PO SCH ×3 (00:19→21:00)
[2020-07-20] MEDS: GABAPENTIN 300 MG CAPSULE PO SCH ×3 (00:19→21:56)
[2020-07-20] MEDS: METHOCARBAMOL 500 MG TABLET PO SCH ×5 (00:19→21:55)
[2020-07-20 00:27] VITALS: BP 124/87
[2020-07-20] MEDS: ACETAMINOPHEN 325 MG TABLET PO PRN ×2 (01:00→21:55)
[2020-07-20 02:05] VITALS: BP 95/61
[2020-07-20 05:22] LABS: ANION GAP 6 mmol/L (5-15); CALCIUM 8.9 mg/dL (8.5-10.1); CHLORIDE 112 mmol/L (98-107); CREATININE 0.81 mg/dL (0.55-1.02)
[2020-07-20 05:27] LABS: BASOPHILS # (AUTO) 0.04 x10^3/uL (0-0.1); BASOPHILS % (AUTO) 1 % (0-1); EOSINOPHILS # (AUTO) 0.25 x10^3/uL (0-0.4); EOSINOPHILS % (AUTO) 3 % (1-7); LYMPHOCYTES # (AUTO) 2.26 x10^3/uL (1-3.4); LYMPHOCYTES % (AUTO) 27 % (22-44); MD NO; MEAN CORPUSCULAR HEMOGLOBIN 26.3 pg (27.0-34.8); MEAN CORPUSCULAR HGB CONC 32.2 g/dL (32.4-35.8); MEAN CORPUSCULAR VOLUME 81.6 fL (80-100); MEAN PLATELET VOLUME 8.7 fL (7.4-10.4); MONOCYTES # (AUTO) 0.81 x10^3/uL (0.2-0.8); MONOCYTES % (AUTO) 9 % (2-9); NEUTROPHILS # (AUTO) 5.18 x10^3/uL (1.8-6.8); NEUTROPHILS % (AUTO) 61 % (42-75); PLATELET COUNT 302 x10^3/uL (130-400); RED BLOOD COUNT 4.09 x10^6/uL (3.82-5.3); RED CELL DISTRIBUTION WIDTH 16.1 % (9.6-15.2)
[2020-07-20] MEDS: ASPIRIN 81 MG TABLET EC PO SCH (05:40)
[2020-07-20 07:39] VITALS: BP 119/77
[2020-07-20] MEDS: OLANZAPINE 10 MG TABLET PO SCH (08:47)
[2020-07-20] MEDS: SERTRALINE 100MG TABLET PO SCH (08:47)
[2020-07-20] MEDS: SENNA/DOCUSATE TABLET PO SCH (08:47)
[2020-07-20] MEDS: BUDESONIDE INH SCH ×2 (08:48→21:00)
[2020-07-20] MEDS: POTASSIUM CHLORIDE 20 MEQ TAB.ER.PRT PO SCH (08:48)
[2020-07-20] MEDS: FORMOTEROL FUMARATE INH SCH ×2 (08:48→21:00)
[2020-07-20] MEDS ORDERED: LACO200T PO (09:00)
[2020-07-20] MEDS ORDERED: POTASSIUM CHLORIDE 20 MEQ in SODIUM CHLORIDE 0.45% 1,000 ML IV SCH (10:00)
[2020-07-20 13:45] VITALS: BP 102/73
[2020-07-20] MEDS: KETOROLAC 30 MG/1 ML IVPush PRN (16:34)
[2020-07-20 19:14] VITALS: BP 89/58
[2020-07-20 21:42] VITALS: BP 99/65
[2020-07-20] MEDS: LACOSAMIDE 50 MG TAB PO SCH (21:55)
[2020-07-20] MEDS: ATORVASTATIN 80 MG TABLET PO SCH (21:56)
[2020-07-21 01:05] VITALS: BP 101/62
[2020-07-21 04:06] LABS: BASOPHILS # (AUTO) 0.05 x10^3/uL (0-0.1); BASOPHILS % (AUTO) 1 % (0-1); EOSINOPHILS # (AUTO) 0.41 x10^3/uL (0-0.4); EOSINOPHILS % (AUTO) 5 % (1-7); LYMPHOCYTES # (AUTO) 2.26 x10^3/uL (1-3.4); LYMPHOCYTES % (AUTO) 29 % (22-44); MD NO; MEAN CORPUSCULAR HGB CONC 31.4 g/dL (32.4-35.8); MEAN CORPUSCULAR VOLUME 82.7 fL (80-100); MEAN PLATELET VOLUME 8.7 fL (7.4-10.4); MONOCYTES # (AUTO) 0.74 x10^3/uL (0.2-0.8); MONOCYTES % (AUTO) 9 % (2-9); NEUTROPHILS # (AUTO) 4.46 x10^3/uL (1.8-6.8); NEUTROPHILS % (AUTO) 56 % (42-75); PLATELET COUNT 293 x10^3/uL (130-400); RED BLOOD COUNT 4.02 x10^6/uL (3.82-5.3)
[2020-07-21 04:10] LABS: INTERNATIONAL NORMALIZED RATIO 3.38 (0.93-1.1); PROTHROMBIN TIME 35.2 Seconds (9.6-11.5)
[2020-07-21 04:16] LABS: ANION GAP 7 mmol/L (5-15); CALCIUM 8.6 mg/dL (8.5-10.1); CHLORIDE 111 mmol/L (98-107)
[2020-07-21 04:18] LABS: CREATININE 0.95 mg/dL (0.55-1.02)
[2020-07-21] MEDS: ASPIRIN 81 MG TABLET EC PO SCH (05:36)
[2020-07-21] MEDS: METHOCARBAMOL 500 MG TABLET PO SCH ×4 (05:36→20:59)
[2020-07-21 07:19] VITALS: BP 103/62
[2020-07-21] MEDS: BUDESONIDE INH SCH ×2 (09:00→21:03)
[2020-07-21] MEDS: FORMOTEROL FUMARATE INH SCH ×2 (09:00→21:03)
[2020-07-21] MEDS: SENNA/DOCUSATE TABLET PO SCH (09:00)
[2020-07-21] MEDS: KETOROLAC 30 MG/1 ML IVPush PRN (09:05)
[2020-07-21] MEDS: GABAPENTIN 300 MG CAPSULE PO SCH ×2 (09:06→20:59)
[2020-07-21] MEDS: SERTRALINE 100MG TABLET PO SCH (09:06)
[2020-07-21] MEDS: POTASSIUM CHLORIDE 20 MEQ TAB.ER.PRT PO SCH (09:06)
[2020-07-21] MEDS: BUSPIRONE 10 MG TABLET PO SCH ×2 (09:06→20:59)
[2020-07-21] MEDS: OLANZAPINE 10 MG TABLET PO SCH (09:06)
[2020-07-21] MEDS: SODIUM CHLORIDE FLUSH 10ML SYR IVF SCH ×2 (09:07→21:07)
[2020-07-21] MEDS: LACOSAMIDE 50 MG TAB PO SCH ×2 (09:07→20:59)
[2020-07-21] MEDS: PROPRANOLOL 20 MG TABLET PO SCH ×2 (09:07→20:59)
[2020-07-21] MEDS: AQUAPHOR NATURAL HEALING OINT 50GM TP SCH ×3 (09:15→21:01)
[2020-07-21 13:23] VITALS: BP 127/61
[2020-07-21] MEDS ORDERED: WARFARIN 5 MG TABLET PO-COUM SCH (18:00)
[2020-07-21 19:41] VITALS: BP 120/81
[2020-07-21] MEDS: ATORVASTATIN 80 MG TABLET PO SCH (20:59)
[2020-07-21] MEDS: ACETAMINOPHEN 325 MG TABLET PO PRN (20:59)
[2020-07-21] MEDS: TRAZODONE 100MG TABLET PO SCH (20:59)
[2020-07-21] MEDS ORDERED: BETAMETHASONE DIPRO OINT 0.05%, 15GM TP SCH (21:00)
[2020-07-21] MEDS: BETAMETHASONE DIPRO CRM 0.05%, 15GM TP SCH (21:01)
[2020-07-22 01:14] VITALS: BP 108/72
[2020-07-22 05:35] LABS: BASOPHILS # (AUTO) 0.03 x10^3/uL (0-0.1); BASOPHILS % (AUTO) 0 % (0-1); EOSINOPHILS # (AUTO) 0.36 x10^3/uL (0-0.4); EOSINOPHILS % (AUTO) 4 % (1-7); LYMPHOCYTES # (AUTO) 1.91 x10^3/uL (1-3.4); LYMPHOCYTES % (AUTO) 23 % (22-44); MD NO; MEAN CORPUSCULAR HEMOGLOBIN 26.3 pg (27.0-34.8); MEAN CORPUSCULAR HGB CONC 31.9 g/dL (32.4-35.8); MEAN CORPUSCULAR VOLUME 82.6 fL (80-100); MEAN PLATELET VOLUME 8.7 fL (7.4-10.4); MONOCYTES # (AUTO) 0.67 x10^3/uL (0.2-0.8); MONOCYTES % (AUTO) 8 % (2-9); NEUTROPHILS % (AUTO) 65 % (42-75); PLATELET COUNT 321 x10^3/uL (130-400); RED BLOOD COUNT 4.14 x10^6/uL (3.82-5.3); RED CELL DISTRIBUTION WIDTH 16.1 % (9.6-15.2)
[2020-07-22 05:43] LABS: INTERNATIONAL NORMALIZED RATIO 2.18 (0.93-1.1); PROTHROMBIN TIME 22.6 Seconds (9.6-11.5)
[2020-07-22 05:46] LABS: ANION GAP 7 mmol/L (5-15); CHLORIDE 113 mmol/L (98-107)
[2020-07-22 05:49] LABS: CALCIUM 9.1 mg/dL (8.5-10.1); CREATININE 0.77 mg/dL (0.55-1.02)
[2020-07-22] MEDS: ASPIRIN 81 MG TABLET EC PO SCH (05:53)
[2020-07-22] MEDS: METHOCARBAMOL 500 MG TABLET PO SCH (05:53)
[2020-07-22 07:16] VITALS: BP 100/70
[2020-07-22] MEDS: GABAPENTIN 300 MG CAPSULE PO SCH (08:02)
[2020-07-22] MEDS: OLANZAPINE 10 MG TABLET PO SCH (08:02)
[2020-07-22] MEDS: SERTRALINE 100MG TABLET PO SCH (08:03)
[2020-07-22] MEDS: PROPRANOLOL 20 MG TABLET PO SCH (08:03)
[2020-07-22] MEDS: LACOSAMIDE 50 MG TAB PO SCH (08:03)
[2020-07-22] MEDS: BUSPIRONE 10 MG TABLET PO SCH (08:03)
[2020-07-22] MEDS: SENNA/DOCUSATE TABLET PO SCH (08:03)
[2020-07-22] MEDS: AQUAPHOR NATURAL HEALING OINT 50GM TP SCH ×2 (08:04→08:06)
[2020-07-22] MEDS: BETAMETHASONE DIPRO CRM 0.05%, 15GM TP SCH (08:06)
[2020-07-22] MEDS: FORMOTEROL FUMARATE INH SCH (08:08)
[2020-07-22] MEDS: BUDESONIDE INH SCH (08:08)
[2020-07-22] MEDS: SODIUM CHLORIDE FLUSH 10ML SYR IVF SCH (08:09)
[2020-07-22] MEDS: KETOROLAC 30 MG/1 ML IVPush PRN (08:23)
[2020-07-22] MEDS ORDERED: maalox/diphenh/lido/decadron PO (09:27)
[2020-07-22] MEDS ORDERED: BETA15CR4 TP (09:27)
== END 2020-07-22 11:32 | disposition home or self-care (01) | DRG 596 ==
LOC: ED 14:42 → EDIP 22:13 → 3N 23:11 → DCLOUNGE 07-22 11:20
PROVIDERS: ADMIT Family Medicine; ATTEND Hospitalist
DX: L51.1 Stevens-Johnson syndrome (principal); D68.59 Other primary thrombophilia; Z68.42 Body mass index [BMI] 45.0-49.9, adult; Q21.1 Atrial septal defect; I10 Essential (primary) hypertension; F25.9 Schizoaffective disorder, unspecified; E66.01 Morbid (severe) obesity due to excess calories; I25.10 Atherosclerotic heart disease of native coronary artery without angina pectoris; J44.9 Chronic obstructive pulmonary disease, unspecified; T36.8X5A Adverse effect of other systemic antibiotics, initial encounter; E78.5 Hyperlipidemia, unspecified; T45.515A Adverse effect of anticoagulants, initial encounter; Z90.49 Acquired absence of other specified parts of digestive tract; Z86.718 Personal history of other venous thrombosis and embolism; Z86.73 Personal history of transient ischemic attack (TIA), and cerebral infarction without residual deficits; Z95.5 Presence of coronary angioplasty implant and graft; I25.2 Old myocardial infarction; Z79.01 Long term (current) use of anticoagulants
CPT/HCPCS: 36415; J3490; 80048; 82040; 85025; 85610; G0378; J1885; J3480

== ENCOUNTER 2020-07-30 20:58 | Observation (INO) | payer MEDICAID ==
[~2020-07-30] VITALS: Ht 157.5 cm; Wt 118.2 kg
[~2020-07-30 20:58] MED LIST changes: +BETA15CR4 TP; +LACO200T PO; +maalox/diphenh/lido/decadron PO
[2020-07-30] MEDS ORDERED: ONDANSETRON 2MG/ML, 2ML IVPush ONE (21:30)
[2020-07-30] MEDS ORDERED: ONDANSETRON 2MG/ML, 2ML ONE (21:36)
[2020-07-30] MEDS ORDERED: MORPHINE SULFATE 4 MG/ML, 1ML ONE ×2 (21:36→22:22)
[2020-07-30] MEDS: MORPHINE SULFATE 4 MG/ML, 1ML IVPush PRN ×2 (21:48→22:25)
--- NOTE | 2020-07-30 21:54 | NUR ---
meds/labs/piv. calm. vss. report to geneva nicole. as
--- NOTE | 2020-07-30 21:55 | NUR ---
REPORT FROM YAS SHEPARD.
[2020-07-30 22:24] LABS: BASOPHILS # (AUTO) 0.03 x10^3/uL (0-0.1); BASOPHILS % (AUTO) 0 % (0-1); EOSINOPHILS # (AUTO) 0.02 x10^3/uL (0-0.4); EOSINOPHILS % (AUTO) 0 % (1-7); LYMPHOCYTES # (AUTO) 3.07 x10^3/uL (1-3.4); LYMPHOCYTES % (AUTO) 22 % (22-44); MD NO; MEAN CORPUSCULAR HEMOGLOBIN 26.1 pg (27.0-34.8); MEAN CORPUSCULAR HGB CONC 31.1 g/dL (32.4-35.8); MEAN PLATELET VOLUME 8.3 fL (7.4-10.4); MONOCYTES % (AUTO) 8 % (2-9); NEUTROPHILS % (AUTO) 69 % (42-75); PLATELET COUNT 397 x10^3/uL (130-400); RED BLOOD COUNT 4.14 x10^6/uL (3.82-5.3)
[2020-07-30 22:25] LABS: INTERNATIONAL NORMALIZED RATIO 0.96 (0.93-1.1)
--- NOTE | 2020-07-30 22:26 | NUR ---
PT REPORTS CHEST PAIN CAME BACK, PT MEDICATED PER MAR. VSS. FALL PRECAUTIONS IN PLACE.
[2020-07-30 22:28] LABS: PROTHROMBIN TIME 9.9 Seconds (9.6-11.5)
--- NOTE | 2020-07-30 23:04 | NUR ---
Report given to Taryn SHEPARD.
--- NOTE | 2020-07-30 23:05 | NUR ---
[facility] of pt. rpeort from Zeyad SHEPARD. pt here for CP with +hx [place]. pt has been medicated and is not resting in position of comfort without c/o. awaiting lab results
[2020-07-30 23:07] LABS: ALBUMIN 3.2 g/dL (3.4-5.0); ANION GAP 7 mmol/L (5-15); CALCIUM 9.1 mg/dL (8.5-10.1); CHLORIDE 109 mmol/L (98-107); CREATININE 0.95 mg/dL (0.55-1.02)
[2020-07-30 23:28] LABS: ALANINE AMINOTRANSFERASE < 6 U/L (12-78); ALKALINE PHOSPHATASE 97 U/L (45-117); TOTAL PROTEIN 7.2 g/dL (6.4-8.2); TROPONIN I < 0.015 ng/mL (0.000-0.045)
[2020-07-30 23:30] LABS: BILIRUBIN,TOTAL 0.2 mg/dL (0.2-1.0)
--- NOTE | 2020-07-30 23:45 | NUR ---
pt dozing intermittently. esaily arousable. no resp. distress
--- NOTE | 2020-07-31 | NUR ---
Deidre BENAVIDES has bene to bedside for recheck. pt to be admitted. pt updated on POC.
[2020-07-31] MEDS ORDERED: NITROGLYCERIN SINGLE TAB 0.4 MG SL PRN (00:30)
[2020-07-31] MEDS ORDERED: DOCUSATE 100 MG CAPSULE PO PRN (00:30)
--- NOTE | 2020-07-31 00:35 | NUR ---
bed assignment recieved. report called to Alesia SHEPARD
--- NOTE | 2020-07-31 00:38 | NUR ---
Dr. Lala at bedside. lab at bedside to draw
--- NOTE | 2020-07-31 00:45 | NUR ---
pt to floor via rileyrmarilee with justino on case monitor. resting in position of comfort in no apparent distress. updated on POC. no family at bedside
[2020-07-31 00:54] VITALS: BP 133/82
[2020-07-31] MEDS ORDERED: BUSP15TA PO (01:02)
[2020-07-31 01:09] LABS: TROPONIN I < 0.015 ng/mL (0.000-0.045)
[2020-07-31] MEDS ORDERED: WARFARIN 5 MG TABLET PO-COUM ONE (01:30)
[2020-07-31] MEDS ORDERED: BUSPIRONE MC SCH (02:00)
[2020-07-31 03:08] LABS: TROPONIN I < 0.015 ng/mL (0.000-0.045)
[2020-07-31] MEDS ORDERED: ASPIRIN 81 MG TABLET EC PO SCH (06:00)
[2020-07-31 07:06] VITALS: BP 158/67
[2020-07-31] MEDS ORDERED: PROPRANOLOL 20 MG TABLET PO SCH (09:00)
[2020-07-31] MEDS ORDERED: FLUTICASONE/VILANTEROL 200-25MCG/INH INH SCH (09:00)
[2020-07-31] MEDS ORDERED: OLANZAPINE 10 MG TABLET PO SCH (09:00)
[2020-07-31] MEDS ORDERED: SODIUM CHLORIDE FLUSH 10ML SYR IVF SCH (09:00)
[2020-07-31] MEDS ORDERED: GABAPENTIN 300 MG CAPSULE PO SCH (09:00)
[2020-07-31] MEDS ORDERED: LACOSAMIDE 50 MG TAB PO SCH (09:00)
[2020-07-31] MEDS ORDERED: SERTRALINE 100MG TABLET PO SCH (09:00)
[2020-07-31] MEDS ORDERED: BUSPIRONE 5 MG TABLET PO SCH (09:00)
[2020-07-31 12:55] VITALS: BP 114/77
[2020-07-31] MEDS ORDERED: TRAZODONE 100MG TABLET PO SCH (21:00)
[2020-07-31] MEDS ORDERED: ATORVASTATIN 80 MG TABLET PO SCH (21:00)
== END 2020-07-31 14:05 | disposition home or self-care (01) ==
LOC: ED 21:23 → INTOOBSV 07-31 00:16 → EDIP 07-31 00:16 → 5SO 07-31 00:52 → DCLOUNGE 07-31 13:24
PROVIDERS: ADMIT Family Medicine; ATTEND Internal Medicine
DX: R07.89 Other chest pain (principal); I25.110 Atherosclerotic heart disease of native coronary artery with unstable angina pectoris; J44.9 Chronic obstructive pulmonary disease, unspecified; I10 Essential (primary) hypertension; D72.829 Elevated white blood cell count, unspecified; F25.9 Schizoaffective disorder, unspecified; E78.00 Pure hypercholesterolemia, unspecified; E66.01 Morbid (severe) obesity due to excess calories; F11.11 Opioid abuse, in remission; R79.1 Abnormal coagulation profile; I25.2 Old myocardial infarction; Z86.73 Personal history of transient ischemic attack (TIA), and cerebral infarction without residual deficits; Z86.718 Personal history of other venous thrombosis and embolism; Z95.5 Presence of coronary angioplasty implant and graft; Z79.899 Other long term (current) drug therapy; Z79.82 Long term (current) use of aspirin; Z79.01 Long term (current) use of anticoagulants
CPT/HCPCS: 36415; 71045; 80053; 84484; 85025; 85610; 93005; 96374; 96375; 96376; 99285; G0378; J2270; J2405

== ENCOUNTER 2020-08-06 11:04 | Emergency (ER) | payer MEDICAID ==
[~2020-08-06] VITALS: Ht 160 cm; Wt 113.8 kg
[~2020-08-06 11:04] MED LIST changes: +BUSP15TA PO
--- NOTE | 2020-08-06 11:32 | NUR ---
THIS IS A 45 YO F W/ C/O HIGH BP AND SHARP, CONSTANT CP THAT STARTED LAST NIGHT. PT REPORTS SYSTOLIC BP IN 150'S AT HOME. PT REPORTS TAKING 3 NITRO LAST NIGHT W/ NO RELIEF. PT REPORTS HAS BEEN OFF PROPRANOLOL X5 DAYS. PT DENIES SOB. PT RESTING ON GURNEY W/ CALL LIGHT IN REACH. CONNECTED TO MONITORING. RESP EVEN AND UNLABORED, NADN. DR.VAN SIMONS AT BEDSIDE FOR ED EVAL.
[2020-08-06] MEDS ORDERED: ACETAMINOPHEN 500 MG TABLET ONE (11:41)
--- NOTE | 2020-08-06 11:45 | NUR ---
MED AJIT FROM PHARMACY.
[2020-08-06 12:00] LABS: BASOPHILS # (AUTO) 0.04 x10^3/uL (0-0.1); BASOPHILS % (AUTO) 1 % (0-1); EOSINOPHILS # (AUTO) 0.35 x10^3/uL (0-0.4); EOSINOPHILS % (AUTO) 4 % (1-7); LYMPHOCYTES # (AUTO) 1.83 x10^3/uL (1-3.4); LYMPHOCYTES % (AUTO) 22 % (22-44); MD NO; MEAN CORPUSCULAR HEMOGLOBIN 25.8 pg (27.0-34.8); MEAN CORPUSCULAR HGB CONC 31.2 g/dL (32.4-35.8); MEAN CORPUSCULAR VOLUME 82.8 fL (80-100); MEAN PLATELET VOLUME 8.2 fL (7.4-10.4); MONOCYTES % (AUTO) 7 % (2-9); NEUTROPHILS # (AUTO) 5.64 x10^3/uL (1.8-6.8); NEUTROPHILS % (AUTO) 67 % (42-75); PLATELET COUNT 350 x10^3/uL (130-400); RED BLOOD COUNT 4.21 x10^6/uL (3.82-5.3); RED CELL DISTRIBUTION WIDTH 16.8 % (9.6-15.2)
[2020-08-06] MEDS ORDERED: ACETAMINOPHEN 500 MG TABLET PO ONE (12:00)
[2020-08-06] MEDS ORDERED: PROPRANOLOL 20 MG TABLET PO ONE (12:00)
[2020-08-06 12:05] VITALS: BP 141/79
[2020-08-06 12:10] LABS: ALBUMIN 3.1 g/dL (3.4-5.0); ANION GAP 4 mmol/L (5-15); CALCIUM 8.8 mg/dL (8.5-10.1); CHLORIDE 109 mmol/L (98-107); CREATININE 0.83 mg/dL (0.55-1.02)
[2020-08-06 12:19] LABS: TROPONIN I < 0.015 ng/mL (0.000-0.045)
--- NOTE | 2020-08-06 13:15 | NUR ---
Patient given discharge instructions and they have confirmed that they understand the instructions. Patient ambulatory with steady gait.
== END 2020-08-06 13:16 | disposition home or self-care (01) ==
LOC: ED 12:55
DX: R07.89 Other chest pain (principal); R51 Headache; I10 Essential (primary) hypertension; R11.0 Nausea; I25.2 Old myocardial infarction; I25.10 Atherosclerotic heart disease of native coronary artery without angina pectoris; J44.9 Chronic obstructive pulmonary disease, unspecified
CPT/HCPCS: 36415; 80048; 82040; 84484; 85025; 93005; 99284

== ENCOUNTER 2020-08-22 14:24 | Emergency (ER) | payer MEDICAID ==
[~2020-08-22] VITALS: Ht 157.5 cm; Wt 120.0 kg
--- NOTE | 2020-08-22 14:41 | NUR ---
BIB [facility] FOR N/V FOLLOWED BY CP FROM [facility]. PT WAS GIVEN 3 NITRO'S FROM [facility], AND 324 MG ASA FROM [facility]. PT DENIES ANY RELIEF FROM NITRO. HX OF ANGINA, X2 SC'S. PT REPORTS PRESSURE IN INTERMITTENT. PT SITTING UP IN BED, NAD NOTED AT THIS TIME. ON MAINTENANCE TRAINER, BP AND SPO2. MASK IN PLACE. SIDE RAILS UP, CALL LIGHT IN REACH. AWAITING ERMD EVAL.
[2020-08-22] MEDS ORDERED: ONDANSETRON ODT 4 MG PO ONE (15:30)
--- NOTE | 2020-08-22 15:32 | NUR ---
PT SITTING UP IN BED, RESPIRATIONS EVEN AND UNLABORED ON RA. NAD NOTED AT THIS TIME. PT REMAINS ON MID LEVEL JAVA DEVELOPER, BP CUFF AND SPO2. AWAITING LABS. SIDE RAILS UP, CALL LIGHT IN REACH.
[2020-08-22] MEDS ORDERED: ONDANSETRON ODT 4 MG ONE (15:33)
[2020-08-22 16:18] LABS: ALANINE AMINOTRANSFERASE 22 U/L (12-78); ALBUMIN 3.1 g/dL (3.4-5.0); ANION GAP 4 mmol/L (5-15); CALCIUM 8.6 mg/dL (8.5-10.1); CHLORIDE 109 mmol/L (98-107); CREATININE 0.87 mg/dL (0.55-1.02)
[2020-08-22 16:22] LABS: ALKALINE PHOSPHATASE 104 U/L (45-117); BILIRUBIN,TOTAL 0.2 mg/dL (0.2-1.0); TOTAL PROTEIN 7.3 g/dL (6.4-8.2); TROPONIN I < 0.015 ng/mL (0.000-0.045)
[2020-08-22 16:25] LABS: BASOPHILS % (AUTO) 1 % (0-1); EOSINOPHILS % (AUTO) 2 % (1-7); LYMPHOCYTES % (AUTO) 19 % (22-44); MEAN CORPUSCULAR HEMOGLOBIN 25.5 pg (27.0-34.8); MEAN CORPUSCULAR HGB CONC 31.1 g/dL (32.4-35.8); MEAN PLATELET VOLUME 8.6 fL (7.4-10.4); MONOCYTES % (AUTO) 10 % (2-9); NEUTROPHILS % (AUTO) 69 % (42-75); PLATELET COUNT 356 x10^3/uL (130-400); RED BLOOD COUNT 4.12 x10^6/uL (3.82-5.3); RED CELL DISTRIBUTION WIDTH 17.3 % (9.6-15.2)
[2020-08-22 16:31] LABS: MD NO
--- NOTE | 2020-08-22 16:34 | NUR ---
CHART UP FOR RECHECK. PT RECLINED IN BED WATCHING TELEVISION. NAD NOTED AT THIS TIME.
--- NOTE | 2020-08-22 17:02 | NUR ---
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 ADVISED TO CALL BLASTING ENTRYMAN FOR RIDE. TELLEZ AT [phone]. MESSAGE LEFT FOR ROSALINDA. PT ADVISED TO CALL BLASTING ENTRYMAN WELL.
--- NOTE | 2020-08-22 17:13 | NUR ---
PT DRESSING AT THIS TIME. ATTEMPTING TO CALL HOUSE FOR RIDE. ALSO EDUCATED ON MTM SERVICES AT DISCHARGE. AWAITING PT'S EXIT FROM ED ROOM.
[2020-08-22 17:14] VITALS: BP 114/68
== END 2020-08-22 17:33 | disposition home or self-care (01) ==
LOC: ED 15:05
DX: R07.89 Other chest pain (principal); R11.2 Nausea with vomiting, unspecified; I10 Essential (primary) hypertension; Z87.891 Personal history of nicotine dependence
CPT/HCPCS: 36415; 71045; 80053; 83690; 84484; 85025; 93005; 99285; Q0162

== ENCOUNTER 2020-09-12 16:47 | Emergency (ER) | payer MEDICAID ==
[~2020-09-12] VITALS: Ht 157.5 cm; Wt 118.0 kg
--- NOTE | 2020-09-12 17:11 | NUR ---
THIS IS A 45 YO FEMALE BIB [facility] FROM HOME FOR CHEST PAIN STARTING APPROX 1645, LOCATED LEFT STERNAL BORDER AND RADIATES UP. ALSO C/O COUGH/CONGESTION AND SOB X2 WEEKS WITH NAUSEA. TOOK ALBUTEROL AT HOME WITH MINOR RELIEF, GIVEN 324 ASA EN ROUTE WITH [facility]. PATIENT DID NOT TAKE NITROGLYCERIN AT HOME. RESPIRATIONS EVEN AND UNLABORED, NON PRODUCTIVE FREQUENT COUGH PRESENT, LUNG SOUNDS CLEAR THROUGHOUT. ALL MONITORING IN PLACE, VSS, AFIB PRESENT IN SOME LEADS BUT NOT IN OTHERS. PATIENT HAS MILD SHAKING IN EXTREMITIES THAT MAY EFFECT THESE EKG FINDINGS. ALL OTHER VSS, NADN AT THIS TIME. CALL LIGHT IN REACH
--- NOTE | 2020-09-12 17:30 | NUR ---
ERP TO ROOM FOR EVAL
[2020-09-12] MEDS ORDERED: ALBUTEROL SULFATE 2.5 MG/3 ML ONE (17:38)
--- NOTE | 2020-09-12 17:47 | NUR ---
Breathing treatment started, patient medicated per emar.
[2020-09-12] MEDS ORDERED: ALBUTEROL SULFATE 2.5 MG/3 ML NPPB ONE (18:00)
[2020-09-12 19:17] VITALS: BP 126/55
== END 2020-09-12 19:23 ==
LOC: ED 19:17
DX: J44.9 Chronic obstructive pulmonary disease, unspecified (principal); I10 Essential (primary) hypertension; I25.10 Atherosclerotic heart disease of native coronary artery without angina pectoris; E78.00 Pure hypercholesterolemia, unspecified; Z86.718 Personal history of other venous thrombosis and embolism; Z79.01 Long term (current) use of anticoagulants
CPT/HCPCS: 71045; 93005; 94640; 99283; J7512; J7613

== ENCOUNTER 2021-07-24 02:44 | Observation (INO) | payer MEDICAID ==
[~2021-07-24] VITALS: Ht 157.5 cm; Wt 120.0 kg
[~2021-07-24 02:44] MED LIST changes: -ASPI-515 PO; +ASPI-963 PO; +ERGO1250 PO; -ERGO500018 PO; +METH-639 PO; -METH500T7 PO
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
[2021-07-24] MEDS ORDERED: ZIPRASIDONE 20 MG INJ IM ONE ×2 (02:54→03:00)
--- NOTE | 2021-07-24 02:55 | NUR ---
Meds admin per jan.
--- NOTE | 2021-07-24 03:30 | NUR ---
Patient repeating, "I am going to shit myself." Offered patient bed armijo but patient was not able to have a BM on bed armijo. Patient agreed to behave and be cooperative if taken out of restraints. Restraints removed and bedside commode provided.
--- NOTE | 2021-07-24 03:53 | NUR ---
Patient had a BM and was then cooperative. Patient back in bed. Restraints remain off patient. Blankets provided. Room secured, belongings locked in cabinet, sitter outside.
--- NOTE | 2021-07-24 04:30 | NUR ---
Patient to CT.
[2021-07-24 04:37] LABS: BASOPHILS % (AUTO) 1 % (0-1); EOSINOPHILS % (AUTO) 2 % (1-7); LYMPHOCYTES % (AUTO) 20 % (22-44); MEAN CORPUSCULAR HEMOGLOBIN 28.4 pg (27.0-34.8); MEAN PLATELET VOLUME 8.7 fL (7.4-10.4); MONOCYTES % (AUTO) 7 % (2-9); NEUTROPHILS % (AUTO) 70 % (42-75); PLATELET COUNT 244 x10^3/uL (130-400); RED BLOOD COUNT 3.91 x10^6/uL (3.82-5.3); RED CELL DISTRIBUTION WIDTH 15.6 % (9.6-15.2)
[2021-07-24 04:44] LABS: ALBUMIN 2.7 g/dL (3.4-5.0); ANION GAP 8 mmol/L (5-15); CALCIUM 8.5 mg/dL (8.5-10.1); CHLORIDE 110 mmol/L (98-107)
[2021-07-24 04:51] LABS: ALANINE AMINOTRANSFERASE 16 U/L (12-78); ALKALINE PHOSPHATASE 88 U/L (45-117); BILIRUBIN,TOTAL 0.2 mg/dL (0.2-1.0); CREATININE 0.74 mg/dL (0.55-1.02); TOTAL PROTEIN 7.2 g/dL (6.4-8.2)
[2021-07-24 05:06] LABS: SALICYLATE LEVEL < 1.7 mg/dL (2.8-20.0)
--- NOTE | 2021-07-24 05:35 | NUR ---
JOSTIN HOWARD TAKING A LOOK AT PT
--- NOTE | 2021-07-24 05:36 | NUR ---
Patient sleeping in [place]. Respirations even and unlabored. Room secured, belongings locked in cabinet. Sitter outside.
--- NOTE | 2021-07-24 06:14 | NUR ---
Patient sleeping in rsan antonio. Respirations even and unlabored. Room secured, belongings locked in cabinet. Sitter outside.
--- NOTE | 2021-07-24 06:20 | NUR ---
Meal tray ordered.
--- NOTE | 2021-07-24 06:29 | NUR ---
AMY ([facility]) SAYS THEY CANNOT TAKE PATIENTS WITH A HISTORY OF MRSA
--- NOTE | 2021-07-24 06:36 | NUR ---
Unable to obtain urine from patient at this time.
--- NOTE | 2021-07-24 06:39 | NUR ---
FAXED PACKET TO [facility]
--- NOTE | 2021-07-24 07:02 | NUR ---
Report to DEVYN Child. Patient care transferred.
--- NOTE | 2021-07-24 07:02 | NUR ---
Vinay from [facility] accepting. Dr. Lala accepting. [id number].
--- NOTE | 2021-07-24 07:03 | NUR ---
REPORT FROM JQ, ASSUME CARE OF PT AT THIS TIME. SITTER AT DOORWAY.
--- NOTE | 2021-07-24 07:10 | NUR ---
Report to Vinay at [facility]. He advised that the needs to be contacted prior to official acceptance due to patient being in a wheelchair. Advised to call Danyell back.
--- NOTE | 2021-07-24 07:44 | NUR ---
[facility] DECLINE PT DUE TO WHEELCHAIR. THEY DO NOT HAVE ENOUGH STAFF TO BE ABLE TO ACCEPT THE ACUITY LEVEL OF A WHEELCHAIR PATIENT
--- NOTE | 2021-07-24 07:45 | NUR ---
CALL FROM SRAVAN AT [facility]. [facility] REFUSING PT AT THIS TIME CITING INABILITY/LACK OF STAFF NEEDED TO ASSIST PT WITH CARE R/T WHEELCHAIR. THIS RN REPEATED WHAT JQ RN REPORTED, THAT PT HAS BEEN TRANSFERING SELF TO/FROM BUT PER SRAVAN, ALL PROVIDERS AND SCHEDULERS STILL REFUSING. THROUGHPUT RN NOTIFIED.
--- NOTE | 2021-07-24 07:48 | NUR ---
NOTIFIED [facility] THAT PT IS STILL IN NEED OF PLACEMENT. THEY HAVE PACKET AND WILL HAVE THEIR PROVIDER EVAL AND NOTIFY US.
--- NOTE | 2021-07-24 08:26 | NUR ---
PT SLEEPING, NAD, SITTER AT DOORWAY.
--- NOTE | 2021-07-24 09:18 | NUR ---
PT SLEEPING, EVEN RISE AND FALL OF CHEST. SITTER AT DOORWAY.
--- NOTE | 2021-07-24 10:15 | NUR ---
NURSE TO NURSE REPORT TO ISAAK Velez. ISAAK WILL CALL BACK IF ACCEPTS.
--- NOTE | 2021-07-24 12:02 | NUR ---
REPORT TO [facility], JARETH SHEPARD. WILL CALL BACK IF ACCEPTING.
--- NOTE | 2021-07-24 15:39 | NUR ---
PT BECOMING AGITATED AND CRYTING THAT SHE WANTS HER MOM. PT ASSISTED TO BEDSIDE COMMODE. PT NOT RESPONDING TO NURSE OR SITTER AND IS INCONSOLABLE. PT ON BED, 1 RAIL UP. SITTER OUTSIDE ROOM IN DIRECT LINE OF SIGHT.
--- NOTE | 2021-07-24 16:10 | NUR ---
PT PICKING AT SKIN AND IS NOW BEGINNING TO BLEED.
[2021-07-24] MEDS ORDERED: HALOPERIDOL 5 MG TABLET PO PRN (17:30)
[2021-07-24] MEDS ORDERED: HALOPERIDOL 5 MG TABLET ONE (17:31)
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
--- NOTE | 2021-07-24 19:08 | NUR ---
CARE ASSUMED AT THIS TIME. FIRST CONTACT WITH PT. PT IS SITTING ON THE SIDE OF BED. NO ACUTE DISTRESS NOTED. PSYCH PERCAUTIONS MAINTAINED. SITTER AT BEDSIDE. GARAGE DOORS DOWN AND LOCKED. WILL CONTINUE TO MONITOR.
--- NOTE | 2021-07-24 19:36 | NUR ---
SPOKE WITH DR. HAMMER FOR PT/INR ORDER FOR PLACEMENT. REPORTS SHE WILL ORDER IT NOW.
[2021-07-24] MEDS ORDERED: LORazepam 1MG TABLET ONE (19:47)
[2021-07-24] MEDS: LORazepam 1MG TABLET PO PRN (20:00)
[2021-07-24] MEDS: TRAZODONE 150MG TABLET PO SCH (20:00)
--- NOTE | 2021-07-24 20:00 | NUR ---
ATTEMPTED TO CALL [facility] FOR FOLLOW UP. NO ANSWER
[2021-07-24] MEDS ORDERED: TRAZODONE 100MG TABLET ONE (20:07)
--- NOTE | 2021-07-24 20:15 | NUR ---
PT TEARFUL UPON MED ADMINISTRATION SAYING [facility] PT RESTING ON STRETCHER. PSYCH PERCAUTIONS MAINTAINED. WILL CONINUE TO MONITOR. SITTER AT BEDSIDE.
[2021-07-24 20:59] LABS: INTERNATIONAL NORMALIZED RATIO 0.94 (0.93-1.1); PROTHROMBIN TIME 10.1 Seconds (9.6-11.5)
[2021-07-24] MEDS: LAMOTRIGINE 200 MG TABLET PO SCH (21:00)
--- NOTE | 2021-07-24 21:32 | NUR ---
PT GOT OUT OF BED AND WALKED OUT OF ROOM AND REFUSED TO RETURN. SECURITY CALLED AND PT DIRECTED BACK TO ROOM. PT RESTING QUIETLY IN HER ROOM. PSYCH PERCAUTIONS MAINTAINED. WILL CONTINUE TO MONITOR.
--- NOTE | 2021-07-24 22:39 | NUR ---
PT SLEEPING ON STRETCHER. NADN. EVEN CHEST RISE AND FALL. PSYCH PERCAUTIONS MAINTAINED. SITTER AT BEDSIDE.
--- NOTE | 2021-07-24 23:54 | NUR ---
PT SLEEPING ON STRETCHER. NADN. EVEN CHEST RISE AND FALL. PSYCH PERCAUTIONS MAINTAINED. SITTER AT BEDSIDE.
--- NOTE | 2021-07-25 01:22 | NUR ---
PT SLEEPING ON STRETCHER. NADN. EVEN CHEST RISE AND FALL. PSYCH PERCAUTIONS MAINTAINED. SITTER AT BEDSIDE.
--- NOTE | 2021-07-25 03:54 | NUR ---
PT SLEEPING ON STRETCHER. NADN. EVEN CHEST RISE AND FALL. PSYCH PERCAUTIONS MAINTAINED. SITTER AT BEDSIDE.
--- NOTE | 2021-07-25 04:34 | NUR ---
PT SLEEPING ON STRETCHER. NADN. EVEN CHEST RISE AND FALL. PSYCH PERCAUTIONS MAINTAINED. SITTER AT BEDSIDE.
[2021-07-25 05:31] LABS: AMPHETAMINE SCREEN, URINE Negative (Negative); BARBITURATE SCREEN, URINE Negative (Negative); BENZODIAZEPINE SCREEN, URINE Negative (Negative); CANNABINOID SCREEN, URINE Negative (Negative); COCAINE SCREEN, URINE Negative (Negative); METHADONE SCREEN, URINE Negative (Negative); OPIATE SCREEN, URINE Negative (Negative)
--- NOTE | 2021-07-25 06:14 | NUR ---
PT SLEEPING ON STRETCHER. NADN. EVEN CHEST RISE AND FALL. PSYCH PERCAUTIONS MAINTAINED. SITTER AT BEDSIDE.
--- NOTE | 2021-07-25 06:54 | NUR ---
CARE TRASNFERED. REPORT GIVEN TO DEVYN KYLE
--- NOTE | 2021-07-25 06:57 | NUR ---
Pt sleeping, sitter in line of site. Safety checks updated, will continue to monitor.
--- NOTE | 2021-07-25 09:20 | NUR ---
DUANE: SPOKE WITH [facility], WILL ACCEPT ONLY IF WE HAVE VIMPAT 200MG PO FOR PATIENT, WILL DISCUSS WITH TERRA COTTA MASON
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
[2021-07-25] MEDS ORDERED: LORazepam 1MG TABLET ONE (10:00)
[2021-07-25] MEDS: LORazepam 1MG TABLET PO PRN (10:23)
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
--- NOTE | 2021-07-25 10:53 | NUR ---
Pt pulled all sheets off her bed and is now sitting on the floor. Sitter in line of site.
[2021-07-25] MEDS ORDERED: HALOPERIDOL 5 MG/ML ONE (11:34)
[2021-07-25] MEDS ORDERED: LORazepam 2 MG/ML, 1ML ONE (11:49)
[2021-07-25] MEDS ORDERED: DIPHENHYDRAMINE 50 MG/ML, 1ML ONE (11:49)
[2021-07-25] MEDS: HALOPERIDOL 5 MG/ML IM PRN (12:10)
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
--- NOTE | 2021-07-25 13:23 | NUR ---
Report and care of pt turned over to DEVYN Álvarez
--- NOTE | 2021-07-25 14:45 | NUR ---
Note wendy in [facility] - 07/25/21 at 1514 by [email or web address] PT RESTING IN BED, AWARE OF TRANSPORT. MEAL PROVIDED. SAFETY PRECAUTIONS IN PLACE.
[2021-07-25] MEDS ORDERED: OLANZAPINE ODT 10MG ONE (14:55)
[2021-07-25] MEDS: OLANZAPINE ODT 10MG PO SCH (15:01)
--- NOTE | 2021-07-25 15:15 | NUR ---
PT RESTING IN BED. SECURITY NOTIFIED TO REMOVE RESTRAINTS.
[2021-07-25] MEDS: GABAPENTIN 300 MG CAPSULE PO SCH (16:00)
--- NOTE | 2021-07-25 18:48 | NUR ---
BEDSIDE REPORT FROM ANGELO SHEPARD, TRANSFER OF CARE AT THIS TIME.
--- NOTE | 2021-07-25 19:50 | NUR ---
PT RESTING IN BED SITTER IN SIGHT
--- NOTE | 2021-07-25 21:00 | NUR ---
PT RESTING ON SRINATH BRUSH RESP EVEN UNLABORED, SITTER IN SIGHT
--- NOTE | 2021-07-25 22:18 | NUR ---
PT UP TO BSC AT THIS TIME NO OTHER NEEDS VERBALIZED
--- NOTE | 2021-07-25 22:41 | NUR ---
PT UP TO BSC NO ASSIST REQUIRED PT BACK TO BED. REFUSING TO ANSWER RN QUESTIONS AT THIS TIME HOWEVER REQ JUICE. JUICE PROVIDED.
--- NOTE | 2021-07-25 23:42 | NUR ---
PT RESTING ON GURNEY RESP EVEN AND UNLABORED SITTER IN SIGHT.
--- NOTE | 2021-07-26 01:06 | NUR ---
PT RESTING ON GURLUCIO NADN RESP EVEN UNLABORED NO NEEDS AT THIS TIME. SITTER IN SIGHT
--- NOTE | 2021-07-26 02:03 | NUR ---
PT RESTING ON GURLUCIO NADN RESP EVEN UNLABORED NO NEEDS AT THIS TIME. SITTER IN SIGHT
--- NOTE | 2021-07-26 03:00 | NUR ---
PT RESTING ON GURLUCIO NADN RESP EVEN UNLABORED NO NEEDS AT THIS TIME. SITTER IN SIGHT
--- NOTE | 2021-07-26 04:00 | NUR ---
PT RESTING ON GURLUCIO NADN RESP EVEN UNLABORED NO NEEDS AT THIS TIME. SITTER IN SIGHT
--- NOTE | 2021-07-26 05:00 | NUR ---
PT RESTING ON GURLUCIO NADN RESP EVEN UNLABORED NO NEEDS AT THIS TIME. SITTER IN SIGHT
--- NOTE | 2021-07-26 06:28 | NUR ---
PT RESTING ON GURLUCIO NADN RESP EVEN UNLABORED NO NEEDS AT THIS TIME. SITTER IN SIGHT
--- NOTE | 2021-07-26 07:04 | NUR ---
REPORT RECEIVED, CARE ASSUMED. PT SLEEPING IN SECURE ROOM WITH SITTER AT DOOR. MEAL TRAY REQUESTED FROM DIETARY. AWAITING FURTHER DISPOSITION.
--- NOTE | 2021-07-26 08:33 | NUR ---
CONT SLEEPING IN SECURE ROOM WITH SITTER AT DOOR.
[2021-07-26] MEDS ORDERED: GABAPENTIN 300 MG CAPSULE ONE ×4 (09:12→20:51)
[2021-07-26] MEDS ORDERED: OLANZAPINE ODT 10MG ONE (09:12)
[2021-07-26] MEDS: OLANZAPINE ODT 10MG PO SCH (09:15)
[2021-07-26] MEDS: GABAPENTIN 300 MG CAPSULE PO SCH ×2 (09:16→20:53)
--- NOTE | 2021-07-26 09:26 | NUR ---
PT AWAKE. MEDICATED ORDERED. PT PROVIDED WITH MEAL TRAY. TEARFUL AT TIMES. "YOU DONT UNDERSTAND. I CANT CHANGE THE WAY I FEEL. I'M EMPTY INSIDE. I HAVE NO ONE. MY PARENTS ARE GONE. MY FAMILY HAS DISOWNED ME. I THOUGHT I HAD A BOYFRIEND THAT LOVES ME" PROVIDED EMOTIONAL SUPPORT. PT CONT IN SECURE ROOM WITH SITTER AT DOOR.
--- NOTE | 2021-07-26 11:11 | NUR ---
PT MOSTLY SLEEPING IN DARKENED, SECURE ROOM. PO FLUIDS AT BEDSIDE. SITTER AT DOOR. AWAITING FURTHER DISPOSITION.
--- NOTE | 2021-07-26 12:36 | NUR ---
PT CONT IN DARKENED SECURE ROOM. DECLINES TO HAVE ANY LIGHTS ON. PT PROVIDED WITH MEAL TRAY AND PO FLUIDS. NO OTHER NEEDS EXPRESSED AT THIS TIME.
--- NOTE | 2021-07-26 12:55 | NUR ---
PT UP TO BSC, ABLE TO STAND AND PIVOT INDEP. PT STATES "I'M SORRY ABOUT EVERYTHING" PT PLACED ON HOSPITAL BED. CONT IN SECURE ROOM WITH SITTER AT DOOR. NO OTHER NEEDS EXPRESSED AT THIS TIME.
--- NOTE | 2021-07-26 15:00 | NUR ---
pt recently seen by psych [facility]. pt reported anxiety and given 1mg ativan PRN. sitter at bedside.
[2021-07-26] MEDS ORDERED: LORazepam 1MG TABLET ONE (15:31)
[2021-07-26] MEDS: LORazepam 1MG TABLET PO PRN (15:39)
--- NOTE | 2021-07-26 18:30 | NUR ---
pt resting wuth eyes closed. respirations even and unlabored. pt ate dinner and given fluids. secured room with sitter present.
--- NOTE | 2021-07-26 19:54 | NUR ---
PT SLEEPING ON GURNEY. NADN. PSYCH PERCAUTIONS MAINTAINED. SITTER AT BEDSIDE.
[2021-07-26] MEDS ORDERED: TRAZODONE 100MG TABLET ONE (20:45)
[2021-07-26] MEDS: TRAZODONE 150MG TABLET PO SCH (20:53)
[2021-07-26] MEDS: LAMOTRIGINE 200 MG TABLET PO SCH ×2 (21:36→21:45)
--- NOTE | 2021-07-26 21:40 | NUR ---
PT RESTING COMFORTABLY ON STRETCHER WATCHING TV. PSYCH PRECAUTIONS MAINTAINED. SITTER AT BEDSIDE.
--- NOTE | 2021-07-26 22:43 | NUR ---
PT SLEEPING ON GURNEY. NADN. PSYCH PERCAUTIONS MAINTAINED. SITTER AT BEDSIDE.
--- NOTE | 2021-07-26 22:48 | NUR ---
PT TO HAVE ALL EXPOSED WOUNDS SWABBED FOR MRSA. IF THEY CALL COME BACK NEGATIVE THEN [facility] WOULD POTENTIALLY ACCEPT PT
--- NOTE | 2021-07-27 00:16 | NUR ---
PT SLEEPING ON GURNEY. NADN. PSYCH PERCAUTIONS MAINTAINED. SITTER AT BEDSIDE.
--- NOTE | 2021-07-27 04:01 | NUR ---
PT SLEEPING ON GURNEY. NADN. PSYCH PERCAUTIONS MAINTAINED. SITTER AT BEDSIDE.
--- NOTE | 2021-07-27 06:55 | NUR ---
REPORT FROM YONY SHEPARD WITH ASSESSMENT PATIENT DEEP ASLEEP. ASSESSMENT DEFERRED UNTIL BOTTLE AND GLASS INSPECTOR DELIVERS BREAKFAST TRAY (SHORTLY)
--- NOTE | 2021-07-27 06:57 | NUR ---
CARE TRANSFERED. REPORT GIVEN TO DEVYN PEREZ
--- NOTE | 2021-07-27 08:00 | NUR ---
WITH ASSESSMENT PATIENT DENIES FEELING SUICIDAL TODAY "I'M GOOD. I WAS SAD BUT I'M FEELING WELL TODAY." VSS WITH EXAM NO OTHER COMPLAINTS PROVIDED WITH BREAKFAST ROOM CONTROLLED WITH PSYCHIATRIC PRECAUTIONS
[2021-07-27] MEDS: HALOPERIDOL 5 MG/ML IM PRN ×4 (10:12→17:30)
[2021-07-27] MEDS ORDERED: OLANZAPINE ODT 10MG ONE (10:28)
[2021-07-27] MEDS ORDERED: LORazepam 1MG TABLET ONE (10:28)
[2021-07-27] MEDS: GABAPENTIN 300 MG CAPSULE PO SCH ×3 (10:37→23:24)
[2021-07-27] MEDS: LORazepam 1MG TABLET PO PRN (10:37)
[2021-07-27] MEDS: OLANZAPINE ODT 10MG PO SCH (10:37)
--- NOTE | 2021-07-27 11:00 | NUR ---
PSYCHIATRY CARPET INSTALLER HELPER AT BEDSIDE FOR EVAL- TO CONTINUE LEGAL HOLD THROUPUT RN WORKING ON TRANSFER
--- NOTE | 2021-07-27 15:31 | NUR ---
No change in exam. patient resting/watching tv. no complaints will continue to monitor
--- NOTE | 2021-07-27 16:16 | NUR ---
break rn. Pt requesting pads and underwear. pt to restroom via wheelchair which she uses independently.
[2021-07-27] MEDS ORDERED: ACETAMINOPHEN 500 MG TABLET ONE (17:24)
[2021-07-27] MEDS ORDERED: GABAPENTIN 300 MG CAPSULE ONE ×2 (17:24→22:43)
[2021-07-27] MEDS ORDERED: ACETAMINOPHEN 500 MG TABLET PO ONE (17:30)
--- NOTE | 2021-07-27 18:55 | NUR ---
RECEIEVED REPORT FROM CHRIS SHEPARD. TRANSFER OF CARE.
--- NOTE | 2021-07-27 19:04 | NUR ---
REPORT TO MIL SHEPARD
--- NOTE | 2021-07-27 19:06 | NUR ---
Patient is resting comfortably in bed. Bed in lowest, rails engaged, call light on lap. Vital Signs within normal limits. WCTM. PT GIVEN FOOD TRAY AND APPLE JUICE. PT CURRENTLY EATING NADN.
--- NOTE | 2021-07-27 19:24 | NUR ---
PT REPORTS SHE DOES NOT HAVE SI AT MOMENT BUT SAYS MAYBE HI. PT STATES SHE WANTS TO HURT HER BF BECAUSE HE CHEATED ON HER. PT STATES PRIOR TO ADMISSION SHE TRIED TO OD ON ALL HER RX PILLS. PT STATES BEING DEPRESSED BECAUSE SHE CAN'T SEE HER GRANDCHILDREN AND MOTHERS ANNIVERSARY OF IS COMING UP. SITTER OUTSIDE ROOM FOR SAFETY MONITORING. PERSONAL BELONGINGS SECURED. GARAGE DOORS SECURED. PT REPORTS FEELING BETTER NOW THAT SHE IS ON HER MEDICATIONS
--- NOTE | 2021-07-27 20:24 | NUR ---
pt wheelchaired to bathroom and back to bed with stable transfers. nadn. will
--- NOTE | 2021-07-27 20:49 | NUR ---
PT REQUESTING COLD CRANBERRY JUICE. PT GIVEN CRANBERRY JUICE AND ICE
[2021-07-27] MEDS ORDERED: TRAZODONE 150MG TABLET PO SCH (21:00)
--- NOTE | 2021-07-27 22:26 | NUR ---
Patient is SLEEPING comfortably in bed. EYES CLOSED. Bed in lowest, rails engaged, call light on lap. Vital Signs within normal limits. WCTM. NADN. BRETAHING EVEN AND UNLABORED. ALL SAFETY MONITORS IN PLACE
[2021-07-27] MEDS: LAMOTRIGINE 200 MG TABLET PO SCH (23:26)
--- NOTE | 2021-07-28 02:37 | NUR ---
Patient is SLEEPING comfortably in bed. EYES CLOSED. Bed in lowest, rails engaged, call light on lap. Vital Signs within normal limits. WCTM. NADN. BREATHING EVEN AND UNLABORED. ALL SAFETY MONITORS IN PLACE
--- NOTE | 2021-07-28 02:56 | NUR ---
PT USING RESTROOM. SITTER OUTSIDE BATHROOOM
--- NOTE | 2021-07-28 02:57 | NUR ---
PT BACK IN BED. NADN. ROSS
--- NOTE | 2021-07-28 04:15 | NUR ---
Patient is SLEEPING comfortably in bed. EYES CLOSED. Bed in lowest, rails engaged, call light on lap. WCTM. NADN. BREATHING EVEN AND UNLABORED. ALL SAFETY MONITORS IN PLACE
--- NOTE | 2021-07-28 06:52 | NUR ---
gave report to rico. transfer of care
--- NOTE | 2021-07-28 08:39 | NUR ---
pt resting quietly, no s/s of distress
[2021-07-28] MEDS: OLANZAPINE ODT 10MG PO SCH (09:30)
[2021-07-28] MEDS: GABAPENTIN 300 MG CAPSULE PO SCH (09:30)
[2021-07-28] MEDS ORDERED: GABAPENTIN 300 MG CAPSULE ONE (09:31)
[2021-07-28] MEDS ORDERED: OLANZAPINE ODT 10MG ONE (09:31)
[2021-07-28] MEDS ORDERED: BACITRACIN ZINC OINT 500U/GM, 0.9 GM ONE (09:42)
[2021-07-28 10:25] VITALS: BP 140/91
--- NOTE | 2021-07-28 11:58 | NUR ---
Lunch tray ordered and juice given
== END 2021-07-28 15:11 | disposition home or self-care (01) ==
LOC: ED 05:31 → INTOOBSV 05:49 → EDIP 05:49
PROVIDERS: ADMIT Emergency Medicine; ATTEND Internal Medicine
DX: R45.851 Suicidal ideations (principal); Z20.822 Contact with and (suspected) exposure to COVID-19; F25.1 Schizoaffective disorder, depressive type; G20 Parkinson's disease; R45.850 Homicidal ideations; H53.2 Diplopia; M81.0 Age-related osteoporosis without current pathological fracture; J44.9 Chronic obstructive pulmonary disease, unspecified; I25.10 Atherosclerotic heart disease of native coronary artery without angina pectoris; I10 Essential (primary) hypertension; E78.00 Pure hypercholesterolemia, unspecified; F11.90 Opioid use, unspecified, uncomplicated; F41.8 Other specified anxiety disorders; I25.2 Old myocardial infarction; Z78.1 Physical restraint status; Z79.82 Long term (current) use of aspirin; Z79.899 Other long term (current) drug therapy; Z86.718 Personal history of other venous thrombosis and embolism; Z87.891 Personal history of nicotine dependence; Z86.14 Personal history of Methicillin resistant Staphylococcus aureus infection; Z95.5 Presence of coronary angioplasty implant and graft; Z99.3 Dependence on wheelchair
CPT/HCPCS: 36415; 70450; 73080; 80053; 80299; 80307; 80320; 80329; 84703; 85025; 85610; 87070; 87147; 87205; 87426; 96372; 99284; G0378; J1630; J3486; G0480

== ENCOUNTER 2021-07-28 11:26 | Inpatient (IN) | payer MEDICAID ==
[~2021-07-28] VITALS: Ht 154.9 cm; Wt 102.4 kg
[2021-07-28] MEDS ORDERED: ONDANSETRON ODT 4 MG PO PRN (11:30)
[2021-07-28] MEDS ORDERED: HALOPERIDOL 5 MG TABLET PO PRN (11:30)
[2021-07-28] MEDS ORDERED: POLYETHYLENE GLYCOL 17 GM PACKET PO PRN (11:30)
[2021-07-28] MEDS ORDERED: BISACODYL 10 MG SUPP PR PRN (11:30)
[2021-07-28] MEDS ORDERED: DOCUSATE 100 MG CAPSULE PO PRN (11:30)
[2021-07-28] MEDS ORDERED: PLEASE ENTER HEIGHT AND WEIGHT MC SCH (14:30)
[2021-07-28 16:28] VITALS: BP 110/70
[2021-07-28] MEDS: GABAPENTIN 300 MG CAPSULE PO SCH ×2 (18:57→20:01)
[2021-07-28] MEDS: OLANZAPINE 10 MG TABLET PO SCH (20:01)
[2021-07-28 20:14] LABS: MICROSCOPIC AUTO
[2021-07-28 20:21] VITALS: BP 132/96
[2021-07-28] MEDS ORDERED: TRAZODONE 100MG TABLET PO ONE (20:30)
[2021-07-28] MEDS: ACETAMINOPHEN 325 MG TABLET PO PRN (20:57)
[2021-07-28] MEDS ORDERED: TRAZODONE 100MG TABLET PO SCH (21:00)
[2021-07-28] MEDS ORDERED: TRAZODONE 150MG TABLET PO SCH (21:00)
[2021-07-28] MEDS ORDERED: LAMOTRIGINE 100 MG TABLET PO SCH (21:00)
[2021-07-29] MEDS: ASPIRIN 81 MG TABLET EC PO SCH (07:30)
[2021-07-29] MEDS ORDERED: ALBUTEROL-IPRATROPIUM MDI INH INH PRN (07:30)
[2021-07-29 07:41] VITALS: BP 101/63
[2021-07-29] MEDS: APIXABAN 5 MG TABLET PO SCH ×2 (09:00→20:32)
[2021-07-29] MEDS ORDERED: GABAPENTIN 300 MG CAPSULE PO SCH (09:00)
[2021-07-29] MEDS: FLUTICASONE FUROATE 100MCG/INH INH SCH (09:00)
[2021-07-29] MEDS: CEPHALEXIN 500 MG CAPSULE PO SCH ×3 (09:00→20:33)
[2021-07-29] MEDS: OLANZAPINE 10 MG TABLET PO SCH ×2 (09:00→20:33)
[2021-07-29 09:43] LABS: CHOL/HDL RATIO 3.4
[2021-07-29] MEDS: GABAPENTIN 300 MG CAPSULE PO SCH ×2 (16:43→20:33)
[2021-07-29 20:00] VITALS: BP 103/83
[2021-07-29] MEDS: TRAZODONE 150MG TABLET PO SCH (20:32)
[2021-07-29] MEDS: LAMOTRIGINE 100 MG TABLET PO SCH (20:33)
[2021-07-29] MEDS: ATORVASTATIN 80 MG TABLET PO SCH (20:33)
[2021-07-30] MEDS: ASPIRIN 81 MG TABLET EC PO SCH (05:49)
[2021-07-30 07:21] VITALS: BP 104/74
[2021-07-30] MEDS: FLUTICASONE FUROATE 100MCG/INH INH SCH (09:00)
[2021-07-30] MEDS: OLANZAPINE 10 MG TABLET PO SCH ×2 (09:46→21:02)
[2021-07-30] MEDS: GABAPENTIN 300 MG CAPSULE PO SCH ×3 (09:46→21:01)
[2021-07-30] MEDS: CEPHALEXIN 500 MG CAPSULE PO SCH ×3 (09:46→21:02)
[2021-07-30] MEDS: APIXABAN 5 MG TABLET PO SCH ×2 (09:46→21:02)
[2021-07-30] MEDS: LURASIDONE 20 MG TABLET PO SCH (16:17)
[2021-07-30] MEDS: ACETAMINOPHEN 325 MG TABLET PO PRN ×2 (16:17→21:06)
[2021-07-30] MEDS ORDERED: PROP10TA16 PO (16:52)
[2021-07-30] MEDS ORDERED: PALIPERIDONE 3 MG TAB.ER.24 PO SCH (17:00)
[2021-07-30 20:07] VITALS: BP 97/68
[2021-07-30] MEDS: ATORVASTATIN 80 MG TABLET PO SCH (21:01)
[2021-07-30] MEDS: LAMOTRIGINE 100 MG TABLET PO SCH (21:02)
[2021-07-30] MEDS: TRAZODONE 150MG TABLET PO SCH (21:02)
[2021-07-30] MEDS: PROPRANOLOL 10 MG TABLET PO SCH (21:19)
[2021-07-31 07:48] VITALS: BP 111/76
[2021-07-31] MEDS: OLANZAPINE 10 MG TABLET PO SCH ×2 (08:59→20:09)
[2021-07-31] MEDS: GABAPENTIN 300 MG CAPSULE PO SCH ×3 (08:59→20:08)
[2021-07-31] MEDS: CEPHALEXIN 500 MG CAPSULE PO SCH ×3 (08:59→20:09)
[2021-07-31] MEDS: APIXABAN 5 MG TABLET PO SCH ×2 (09:00→20:08)
[2021-07-31] MEDS: PROPRANOLOL 10 MG TABLET PO SCH ×2 (09:00→20:08)
[2021-07-31] MEDS: FLUTICASONE FUROATE 100MCG/INH INH SCH (09:17)
[2021-07-31] MEDS: ACETAMINOPHEN 325 MG TABLET PO PRN ×2 (12:24→16:16)
[2021-07-31] MEDS: LURASIDONE 20 MG TABLET PO SCH (16:52)
[2021-07-31 19:36] VITALS: BP 113/76
[2021-07-31] MEDS: LAMOTRIGINE 100 MG TABLET PO SCH (20:08)
[2021-07-31] MEDS: ATORVASTATIN 80 MG TABLET PO SCH (20:08)
[2021-07-31] MEDS: TRAZODONE 150MG TABLET PO SCH (20:09)
[2021-08-01] MEDS: CEPHALEXIN 500 MG CAPSULE PO SCH ×4 (07:54→21:00)
[2021-08-01] MEDS: OLANZAPINE 10 MG TABLET PO SCH ×3 (07:54→21:00)
[2021-08-01] MEDS: FLUTICASONE FUROATE 100MCG/INH INH SCH ×2 (07:54→08:40)
[2021-08-01] MEDS: GABAPENTIN 300 MG CAPSULE PO SCH ×4 (07:54→22:52)
[2021-08-01] MEDS: APIXABAN 5 MG TABLET PO SCH ×3 (07:54→21:00)
[2021-08-01] MEDS: PROPRANOLOL 10 MG TABLET PO SCH ×3 (07:54→22:52)
[2021-08-01] MEDS ORDERED: LORazepam 1MG TABLET ONE (14:29)
[2021-08-01] MEDS: LORazepam 1MG TABLET PO PRN (14:37)
[2021-08-01] MEDS ORDERED: GABAPENTIN 400 MG CAPSULE ONE (16:02)
[2021-08-01] MEDS: LURASIDONE 20 MG TABLET PO SCH (16:28)
[2021-08-01] MEDS: TRAZODONE 100MG TABLET PO SCH (21:00)
[2021-08-01] MEDS: MELATONIN 5 MG TABLET PO SCH (21:00)
[2021-08-01] MEDS: ATORVASTATIN 80 MG TABLET PO SCH (21:00)
[2021-08-01] MEDS: LAMOTRIGINE 100 MG TABLET PO SCH (22:52)
[2021-08-02] MEDS: LORazepam 1MG TABLET PO PRN ×3 (00:42→21:10)
[2021-08-02 07:29] VITALS: BP 102/68
[2021-08-02] MEDS: FLUTICASONE FUROATE 100MCG/INH INH SCH (09:00)
[2021-08-02] MEDS: CEPHALEXIN 500 MG CAPSULE PO SCH ×3 (09:00→21:11)
[2021-08-02] MEDS: APIXABAN 5 MG TABLET PO SCH ×2 (09:00→21:11)
[2021-08-02] MEDS: OLANZAPINE 10 MG TABLET PO SCH (09:00)
[2021-08-02] MEDS: PROPRANOLOL 10 MG TABLET PO SCH ×2 (09:49→21:11)
[2021-08-02] MEDS: GABAPENTIN 300 MG CAPSULE PO SCH ×3 (09:50→21:11)
[2021-08-02] MEDS ORDERED: QUETIAPINE 25MG TABLET ONE (16:45)
[2021-08-02] MEDS: QUETIAPINE 25MG TABLET PO PRN (17:04)
[2021-08-02] MEDS: LURASIDONE 20 MG TABLET PO SCH (17:04)
[2021-08-02 19:10] VITALS: BP 114/80
[2021-08-02] MEDS: ATORVASTATIN 80 MG TABLET PO SCH (21:10)
[2021-08-02] MEDS: LAMOTRIGINE 100 MG TABLET PO SCH (21:10)
[2021-08-02] MEDS: TRAZODONE 100MG TABLET PO SCH (21:10)
[2021-08-02] MEDS: QUETIAPINE 100MG TABLET PO SCH (21:11)
[2021-08-02] MEDS: ACETAMINOPHEN 325 MG TABLET PO PRN (21:16)
[2021-08-02] MEDS: MELATONIN 5 MG TABLET PO SCH (21:37)
[2021-08-03 07:31] VITALS: BP 109/76
[2021-08-03] MEDS: FLUTICASONE FUROATE 100MCG/INH INH SCH (08:51)
[2021-08-03] MEDS: APIXABAN 5 MG TABLET PO SCH ×2 (08:51→21:25)
[2021-08-03] MEDS: PROPRANOLOL 10 MG TABLET PO SCH ×2 (08:51→21:26)
[2021-08-03] MEDS: CEPHALEXIN 500 MG CAPSULE PO SCH ×3 (08:51→21:24)
[2021-08-03] MEDS: GABAPENTIN 300 MG CAPSULE PO SCH ×3 (08:51→21:25)
[2021-08-03] MEDS: QUETIAPINE 25MG TABLET PO PRN (13:33)
[2021-08-03] MEDS: LURASIDONE 20 MG TABLET PO SCH (16:54)
[2021-08-03] MEDS: ACETAMINOPHEN 325 MG TABLET PO PRN (18:30)
[2021-08-03 20:16] VITALS: BP 103/65
[2021-08-03] MEDS ORDERED: GABAPENTIN 100 MG CAPSULE ONE (20:59)
[2021-08-03] MEDS ORDERED: GABAPENTIN 400 MG CAPSULE ONE (21:03)
[2021-08-03] MEDS: LORazepam 1MG TABLET PO PRN (21:24)
[2021-08-03] MEDS: TRAZODONE 100MG TABLET PO SCH (21:24)
[2021-08-03] MEDS: LAMOTRIGINE 100 MG TABLET PO SCH (21:24)
[2021-08-03] MEDS: QUETIAPINE 100MG TABLET PO SCH (21:25)
[2021-08-03] MEDS: ATORVASTATIN 80 MG TABLET PO SCH (21:25)
[2021-08-04 07:42] VITALS: BP 100/63
[2021-08-04] MEDS: GABAPENTIN 300 MG CAPSULE PO SCH ×3 (08:52→21:42)
[2021-08-04] MEDS: APIXABAN 5 MG TABLET PO SCH ×2 (08:52→21:13)
[2021-08-04] MEDS: PROPRANOLOL 10 MG TABLET PO SCH ×2 (08:52→21:41)
[2021-08-04] MEDS: CEPHALEXIN 500 MG CAPSULE PO SCH ×4 (08:52→21:12)
[2021-08-04] MEDS: FLUTICASONE FUROATE 100MCG/INH INH SCH (08:55)
[2021-08-04] MEDS: LURASIDONE 20 MG TABLET PO SCH ×2 (16:52→17:00)
[2021-08-04 19:38] VITALS: BP 101/57
[2021-08-04] MEDS ORDERED: GABAPENTIN 400 MG CAPSULE ONE (21:09)
[2021-08-04] MEDS: ACETAMINOPHEN 325 MG TABLET PO PRN (21:12)
[2021-08-04] MEDS: ATORVASTATIN 80 MG TABLET PO SCH (21:12)
[2021-08-04] MEDS: QUETIAPINE 100MG TABLET PO SCH (21:12)
[2021-08-04] MEDS: TRAZODONE 100MG TABLET PO SCH (21:12)
[2021-08-04] MEDS: LORazepam 1MG TABLET PO PRN (21:13)
[2021-08-04] MEDS: LAMOTRIGINE 100 MG TABLET PO SCH (21:13)
[2021-08-05 07:50] VITALS: BP 135/86
[2021-08-05] MEDS: GABAPENTIN 300 MG CAPSULE PO SCH (08:47)
[2021-08-05] MEDS: APIXABAN 5 MG TABLET PO SCH (08:47)
[2021-08-05] MEDS: CEPHALEXIN 500 MG CAPSULE PO SCH (08:48)
[2021-08-05] MEDS: PROPRANOLOL 10 MG TABLET PO SCH (08:48)
[2021-08-05] MEDS: FLUTICASONE FUROATE 100MCG/INH INH SCH (09:21)
== END 2021-08-05 10:15 | disposition home or self-care (01) | DRG 885 ==
LOC: 3E 14:20
PROVIDERS: ADMIT Psychiatry & Neurology Psychosomatic Medicine; ATTEND Psychiatry & Neurology Psychosomatic Medicine
DX: F25.0 Schizoaffective disorder, bipolar type (principal); Z68.41 Body mass index [BMI] 40.0-44.9, adult; E66.9 Obesity, unspecified; E78.5 Hyperlipidemia, unspecified; F41.9 Anxiety disorder, unspecified; F60.3 Borderline personality disorder; G47.00 Insomnia, unspecified; G89.29 Other chronic pain; I10 Essential (primary) hypertension; J44.9 Chronic obstructive pulmonary disease, unspecified; I25.10 Atherosclerotic heart disease of native coronary artery without angina pectoris; I25.2 Old myocardial infarction; Z78.9 Other specified health status; Z79.82 Long term (current) use of aspirin; Z79.899 Other long term (current) drug therapy; Z86.14 Personal history of Methicillin resistant Staphylococcus aureus infection; Z86.718 Personal history of other venous thrombosis and embolism; Z87.891 Personal history of nicotine dependence; Z82.49 Family history of ischemic heart disease and other diseases of the circulatory system; Z80.1 Family history of malignant neoplasm of trachea, bronchus and lung
CPT/HCPCS: 36415; 71045; 80061; 81001; 87070; 87081; 87086; 87147; 87205; 93005

== ENCOUNTER 2021-08-11 21:14 | Emergency (ER) | payer MEDICAID ==
[~2021-08-11] VITALS: Ht 154.9 cm; Wt 106.8 kg
[~2021-08-11 21:14] MED LIST changes: +PROP10TA16 PO
[2021-08-11 21:31] VITALS: BP 122/96
--- NOTE | 2021-08-11 21:47 | NUR ---
patient states that she wants to kill herself by overdosing on her medications. patient very upset and agitated upon arrival. patient was unable to act upon her suicide plan room secured. vss. belongings secured, safety representative outside room, patient sitting in bed comfortably, patient in no acute distress at this time
[2021-08-11 21:49] LABS: BASOPHILS % (AUTO) 1 % (0-1); EOSINOPHILS % (AUTO) 0 % (1-7); LYMPHOCYTES % (AUTO) 14 % (22-44); MEAN CORPUSCULAR HEMOGLOBIN 28.2 pg (27.0-34.8); MEAN CORPUSCULAR HGB CONC 32.9 g/dL (32.4-35.8); MEAN PLATELET VOLUME 8.5 fL (7.4-10.4); MONOCYTES % (AUTO) 3 % (2-9); NEUTROPHILS % (AUTO) 82 % (42-75); PLATELET COUNT 400 x10^3/uL (130-400); RED BLOOD COUNT 4.04 x10^6/uL (3.82-5.3); RED CELL DISTRIBUTION WIDTH 14.7 % (9.6-15.2)
[2021-08-11 22:01] LABS: ANION GAP 8 mmol/L (5-15); CALCIUM 9.2 mg/dL (8.5-10.1); CHLORIDE 106 mmol/L (98-107); CREATININE 0.82 mg/dL (0.55-1.02)
[2021-08-11 22:02] LABS: SALICYLATE LEVEL < 1.7 mg/dL (2.8-20.0)
[2021-08-11 22:07] LABS: ALANINE AMINOTRANSFERASE 17 U/L (12-78); ALKALINE PHOSPHATASE 78 U/L (45-117); BILIRUBIN,TOTAL 0.5 mg/dL (0.2-1.0); TOTAL PROTEIN 7.6 g/dL (6.4-8.2)
--- NOTE | 2021-08-11 22:33 | NUR ---
drug safety specialist outside room, patient sitting in bed comfortably, patient in no acute distress at this time
--- NOTE | 2021-08-11 23:48 | NUR ---
clinical safety manager outside room, patient sitting in bed comfortably, patient in no acute distress at this time
--- NOTE | 2021-08-12 00:04 | NUR ---
called [facility] about pt. 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 most likely going to accept. need urine and rapid covid sample
--- NOTE | 2021-08-12 00:11 | NUR ---
derek is accepting. accepting is Dr. Campos
--- NOTE | 2021-08-12 00:15 | NUR ---
UDS SENT BY [facility]
[2021-08-12 00:20] LABS: AMPHETAMINE SCREEN, URINE Negative (Negative); BARBITURATE SCREEN, URINE Negative (Negative); BENZODIAZEPINE SCREEN, URINE Negative (Negative); CANNABINOID SCREEN, URINE Negative (Negative); COCAINE SCREEN, URINE Negative (Negative); METHADONE SCREEN, URINE Negative (Negative); OPIATE SCREEN, URINE Negative (Negative)
--- NOTE | 2021-08-12 00:50 | NUR ---
RAPID COVID SWAB SENT
--- NOTE | 2021-08-12 00:52 | NUR ---
airworthiness safety inspector outside room, patient sitting in bed comfortably, patient in no acute distress at this time
== END 2021-08-12 02:06 ==
LOC: ED 23:32
DX: R45.851 Suicidal ideations (principal); F25.9 Schizoaffective disorder, unspecified; F32.1 Major depressive disorder, single episode, moderate; F60.9 Personality disorder, unspecified; Z20.822 Contact with and (suspected) exposure to COVID-19; I25.2 Old myocardial infarction; I25.10 Atherosclerotic heart disease of native coronary artery without angina pectoris; J44.9 Chronic obstructive pulmonary disease, unspecified; I10 Essential (primary) hypertension; Z87.891 Personal history of nicotine dependence
CPT/HCPCS: 36415; 80053; 80299; 80307; 80320; 80329; 85025; 87426; 99285; G0480